=== PATIENT | male | born 1975 | race Caucasian/White ===

== ENCOUNTER 2024-05-19 15:02 | Inpatient (IN) | payer OTHER, SELFPAY ==
[2024-05-19] VITALS (11 sets, daily range): BP systolic 161–227; BP diastolic 92–140; BMI 23.4; BMI 22.1
--- NOTE | 2024-05-19 11:35 | EDRN ---
Seizure pads placed on both siderails at this time for pt safety.
[2024-05-19 11:51] LABS: % Basophils 0.7 % (0-2); % Eosinophils 1.6 % (0-6); % Immature Granulocytes 0.2 % (0-0.5); % Monocytes 10.3 % (1.7-9.3); % Neutrophils 69.2 % (42.2-75.2); Absolute Eosinophils 0.1 10^3/uL (0-0.7); Absolute Monocytes 0.6 10^3/uL (0.1-0.6); Hematocrit 27.6 % (39.0-52.0); Hemoglobin 9.4 g/dL (13.0-18.0); Mean Corp Hgb Conc. 34.1 g/dL (33.0-37.0); Mean Corpuscular Volume 82.1 fL (80.0-94.0); Mean Platelet Volume 9.4 fL (7.4-10.4); Nucleated Red Blood Cells % 0 % (-); Platelet Count 259 10^3/uL (130-400); Red Blood Cell Count 3.36 10^6/uL (4.70-6.10); Red Cell Dist. Width 14.5 % (11.5-14.5); White Blood Cell Count 5.7 10^3/uL (4.8-10.8)
[2024-05-19 12:01] LABS: ALT (SGPT) 34 U/L (0-50); AST (SGOT) 49 U/L (17-59); Albumin 2.6 g/dl (3.5-5.0); Alkaline Phosphatase 137 U/L (38-126); Blood Urea Nitrogen 32 mg/dl (9-20); Calcium 9.3 mg/dl (8.4-10.2); Carbon Dioxide 30 mmol/L (22-30); Chloride 105 mmol/L (98-107); Estimated Creatinine Clearance 62 ml/min; Glucose 153 mg/dl (70-99); Potassium 4.9 mmol/L (3.5-5.1); Sodium 141 mmol/L (135-145); Total Bilirubin 0.2 mg/dl (0.2-1.3); Total Protein 5.1 g/dl (6.3-8.2); eGFR 52.17
[2024-05-19 12:22] LABS: Urine Albumin 3+ (Neg - Trace); Urine Bilirubin Negative (Negative); Urine Character Clear (Clear); Urine Color Yellow; Urine Glucose 3+ (Negative); Urine Ketone Negative (Negative); Urine Leukocyte Negative (Negative); Urine Nitrite Negative (Negative); Urine Occult Blood Trace (Negative); Urine Urobilinogen Negative (Neg - 1+)
--- NOTE | 2024-05-19 12:39 | EDRN ---
Pt incontinent of a large amount of urine w/ diapers changed and bedding w/ good pericare done. Lou Zepeda PA in room w/ pt. BP sitting straight up was 198/98 so still very high.
--- NOTE | 2024-05-19 12:42 | ED.GENMED ---
History of Present Illness
General
Chief Complaint: Seizure
Time Seen by Provider: 05/19/24 11:23
History of Present Illness
History of Present Illness:
48-year-old male with history of prior traumatic brain injury, epilepsy disorder, aphasia, and legal blindness presents to the emergency department from [facility] due to a witnessed seizure. On arrival he is postictal and
somnolent but arouses to voice and follows commands. Family reports that over the past 5 to 6 days he has been increasingly confused, normally is oriented to month and year but has not been able to answer these questions recently. He did see his
neurologist earlier in the week however details of this appointment are vague according to the family. He is maintained on Keppra and lacosamide for seizure control. No reported fevers.
Review of Systems
Review of Systems
Allergies reviewed?: Yes
All Other Systems: ROS reviewed and negative except as documented in HPI and ROS
Phy Exam
Physical Exam
Physical Exam:
GEN: Well appearing, NAD, WDWN
Eyes: PERRLA, EOMs intact, no scleral icterus
HENT: NCAT, oral mucosa moist, no JVD
Lungs: CTAB, no wheezes, rales, rhonchi, normal chest wall excursion
Cardiac: RRR, no M/R/G, no peripheral edema. Radial pulses 2+ bilat
Abdomen: S, NT, ND, NABS, no masses or hepatosplenomegaly
Neuro: Somnolent, arouses to voice and follows commands. Profoundly disoriented to time and place
MSK: No gross deformity or ecchymosis. No edema. No digital clubbing
Skin: No rashes, petechiae. Normal color, no pallor or jaundice.
Psych: Calm, cooperative, proper hygiene
Course
Orders/Labs/Results
Orders:
Orders
05/19/24 11:32
Electrocardiogram (*1) Urgent
Reason for Study: Chest Pain
Cardiac Monitoring- Treatment ONCE
EKG- Treatment ONCE
IV Insert/Care/Rem.- Treatment PRN
05/19/24 11:36
Complete Blood Count/With Diff Urgent
Comprehensive Metabolic Panel Urgent
Keppra (Levetiracetam) [S] Urgent
05/19/24 12:09
Urinalysis Reflex To Culture Urgent
Date Specimen was Collected: 05/19/24
Time Specimen was Collected: 12:07
Urine Microscopic Reflex Cult Urgent
05/19/24 12:40
CT Head W/o Iv Contrast Urgent
Comment:
Reason For Exam: AMS
05/19/24 14:08
HydrALAZINE [Apresoline] 10 mg IV NOW STA
05/19/24 14:49
Admit/Transfer Patient As Directed
Co-Sign Provider:
Level of Care: Inpatient admission
Assign to:: Telemetry
Physician / Group: erika
Diagnosis: seizure
Reason for Telemetry: Arrhythmia
Date to Stop Telemetry: 05/22/24
Time to Stop Telemetry: 11:00
Reason for Hospitalization: seizure
Expected length of stay greater than two midnights?: Yes
ELOS- Estimated Length of Stay in days: 2
I certify the patient meets the requirements for IP care: Yes
PRN Pain Medication Management As Directed
May give lesser potent ordered pain med per pt: Yes
preference::
Protocol:: Medication orders for pain may be administered in a
manner that supports deferring to patient preference
when the pt is:
- Requesting an ordered lesser potent pain medication.
Least to most potent pain medications are defined
as: acetaminophen < NSAID < tramadol < opioids
(morphine, oxycodone, hydromorphone).
- Requesting a lesser dose of the same medication IF
ORDERED.
- Requesting a less intrusive route of administration
if both routes are prescribed by the provider (PO <
IV).
05/19/24 14:50
Code Status As Directed
Resuscitation Status: Full Code
05/19/24 Dinner
Regular
At Your Request: Full Participation
Does patient need a safe tray?: No
05/19/24 15:54
Activity As Directed
Activity Level: As Tolerated
Vital Signs As Directed
Frequency: Per unit guidelines
DX Deep Vein Thrombosis Video Routine
05/19/24 20:00
Heparin 5,000 units SC Q12
05/20/24 06:00
Complete Blood Count/With Diff IN AM
Comprehensive Metabolic Panel IN AM
05/22/24 11:00
DC Protocol for Telemetry ONCE
Abnormal Lab Results
05/19/24 05/19/24
11:36 12:09
RBC 3.36 L 10^6/uL
(4.70-6.10)
Hgb 9.4 L g/dL
(13.0-18.0)
Hct 27.6 L %
(39.0-52.0)
Absolute Lymphs (auto) 1.0 L 10^3/uL
(1.2-3.4)
Lymphocytes % 18.0 L %
(20.5-51.1)
Monocytes % 10.3 H %
(1.7-9.3)
BUN 32 H mg/dl
(9-20)
Creatinine 1.6 H mg/dL
(0.7-1.3)
Glucose 153 H mg/dl
(70-99)
Alkaline Phosphatase 137 H U/L
(38-126)
Total Protein 5.1 L g/dl
(6.3-8.2)
Albumin 2.6 L g/dl
(3.5-5.0)
Ur Occult Blood Reflex Trace A
(Negative)
Urine RBC 3-6 A /HPF
(0-2)
Urine Bacteria (Reflex) Few A
(Negative)
Urine Glucose 3+ A
(Negative)
Urine Albumin (Reflex) 3+ A
(Neg - Trace)
05/19/24 11:36
05/19/24 11:36
Vital Signs
Initial and Last Documented VS:
Initial Vital Signs
Pulse Ox
98
05/19/24 11:21
Last Documented Vital Signs
Temp Pulse Resp BP Pulse Ox
98.7 F 78 16 183/107 95
05/19/24 15:37 05/19/24 15:37 05/19/24 15:37 05/19/24 15:37 05/19/24 15:37
MDM/Problems Addressed
MDM/Problems Addressed:
At this time the cause of the patient's encephalopathy is not clear. According to his family he is able to have a conversation and is oriented fully at baseline, clearly now he feels it is a 1987 and he is perseverating on prior historical events
within his life. He had no further seizure-like activity in the emergency department. CT of the head does not show any acute intracranial pathology. He is certainly anemic however not severely so at baseline is not known as this is his first
visit at [facility]. He remained persistently hypertensive in the emergency department regardless of body position thus we will treat this as a potential hypertensive crisis with encephalopathy. Will admit to the hospitalist service for
further management
*Critical Care Note
Total Time (30-74mins, 75-104mins- exclusive of procedures): Not Applicable
ED Attending Note
-
Portions of this chart may have been created with voice recognition software.� Occasional wrong word or��sound alike� substitutions may have occurred due to the inherent limitations of voice recognition software.
Discharge Plan
Departure
Patient Disposition: Admit
Date of Disposition: 05/19/24
Time of Disposition: 14:27
Presentation/result/management discussed w/ accepting MD/DO: Hospitalist
Discharge Problem:
Hypertensive crisis
Interventions
Interventions:
*Risk Screen - Suicide Last Done: 05/19/24 11:41
*General Assessment Last Done: 05/19/24 11:52
*Neglect/Abuse Screening Last Done: 05/19/24 11:31
ED- Fall Risk Assessment Last Done: 05/19/24 11:52
*ED COVID-19 Vaccine History Last Done: 05/19/24 11:52
*Nursing Disposition Last Done: 05/19/24 15:52
ED- Cardiac Assessment Last Done: 05/19/24 11:55
ED- Neurological Assessment Last Done: 05/19/24 11:55
ED- Pulmonary Assessment Last Done: 05/19/24 11:55
Discharge Date and Time
Discharge Date/Time: 05/19/24 15:52
[2024-05-19 12:43] LABS: Urine Bacteria Few (Negative); Urine Squamous Cell 0-2 /LPF (Few); Urine White Cell 0-2 /HPF (0-5)
[2024-05-19] MEDS: APRESOLINE 10 MG IV (14:35)
--- NOTE | 2024-05-19 14:52 | HPS.HSE ---
Family Physician
-
Family Physician: Felix Quiñonez
Chief Complaint
-
seizure
History of Present Illness
48-year-old male past medical history of prior traumatic brain injury, postconcussive syndrome, epilepsy, legal blindness bilaterally, gastroparesis, diabetes, CKD, labile hypertension, orthostatic hypotension, presenting to the emergency room from
[facility] due to witnessed seizure-like activity. Patient reports that he has a headache and feels confused but denies nausea. He denies any pain elsewhere. He denies any fever, cough, urinary symptoms. No numbness or
tingling.
As per patient's parents patient was at his baseline functional status until 5 days ago when they noticed that he was having tremor and having memory impairment and stuttering a bit. Patient has these symptoms on occasion without a clear triger but
they have been infrequent until 5 days ago. Patient follows with Dr. Yonny Her neurologist at [facility]. His gabapentin was increased 6 months ago.
Patient's blood pressure is normally 120s but he has had orthostatic hypotension his blood pressure drops significantly when standing up.
Patient has been using a walker until a few months ago when he has been mostly bedbound since then.
No smoking, alcohol use or any drug use.
Medical History
Past Medical History
Past Medical History: Reports Other (prior traumatic brain injury, postconcussive syndrome, epilepsy, legal blindness bilaterally, gastroparesis, diabetes, CKD, labile hypertension, orthostatic hypotension,)
Past Surgical History: Reports Other (Cholecystectomy, knee surgery, cataract surgery,)
Social History
Tobacco: Non-smoker
Alcohol: None
Drug: None
Family History
Family History: Not pertinent
Allergies / Home Medications
Allergies reflects when Allergies were last updated in [employer].
Home Medications with original date entered in [employer]
Allergy/Medication List:
Allergies
Allergy/AdvReac Type Severity Reaction Status Date / Time
Sulfa (Sulfonamide Allergy Unknown Verified 05/19/24 11:21
Antibiotics)
Review of Systems
-
History Source: Patient
A 12 point ROS was completed and negative except as noted: Yes
Constitutional: Reports No Symptoms
EENT: Reports No Symptoms
Respiratory: Reports No Symptoms
Cardiac: Reports No Symptoms
Abdomen/GI: Reports No Symptoms
: Reports No Symptoms
Musculoskeletal: Reports No Symptoms
Skin: Reports No Symptoms
Neurological: Reports See HPI
Endocrine: Reports No Symptoms
Hematologic/Lymphatic: Reports No Symptoms
Psych: Reports No Symptoms
Physical Exam
Vital Signs
Vital Signs
Temp Pulse Resp BP Pulse Ox
97.6 F 67 13 217/102 98
05/19/24 11:22 05/19/24 13:15 05/19/24 13:15 05/19/24 13:00 05/19/24 13:15
Physical Exam
General: Well Developed, Well Nourished and No Apparent Distress
HEENT: NormoCephalic, Moist mucous membranes and Atraumatic
Respiratory: Clear
Cardiac: S1/S2 and Regular Rhythm; No Murmur or Rub
GI: Soft, Non Tender, Non Distended and Normal Bowel Sounds; No Organomegaly
Rectal: Deferred by Provider
Musculoskeletal: No Clubbing, No Cyanosis and No Edema
Skin: No Rash
Neuro: Nonfocal/grossly intact
Laboratory Results
-
05/19/24 11:36
05/19/24 11:36
Laboratory Results
Total Bilirubin 0.2 mg/dl (0.2-1.3) 05/19/24 11:36
AST 49 U/L (17-59) 05/19/24 11:36
ALT 34 U/L (0-50) 05/19/24 11:36
Alkaline Phosphatase 137 U/L (38-126) H 05/19/24 11:36
Data Reviewed
-
Lab Data: Labs Reviewed by me
Old Records: Reviewed
Impression/Plan
-
IMPRESSION:
PLAN:
# Seizure
# History of epilepsy
-Patient with currently some postictal symptoms although he is able to answer questions and follow commands
-no neurological deficits
-CT head shows no acute abnormality
-Continue Keppra, lacosamide
-Keppra level pending
-Urinalysis unremarkable
-Neurology consulted
# Hypertensive urgency
-Blood pressure 200
-IV hydralazine
-Continue clonidine patch
-Continue Coreg
-Continue spironolactone
# CKD versus ESTEFANI on CKD
-Creatinine 1.6
-Unknown baseline creatinine
Orthostatic hypotension
-Continue droxidopa, fludrocortisone
History of traumatic brain injury
History of postconcussive syndrome
-Continue gabapentin
Type 2 diabetes
-Continue Lantus 12 units
-Hold metformin
-Insulin sliding scale
Diabetic gastroparesis
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
Chronic anemia
-Hemoglobin 9.4, unknown baseline
-Continue ferrous sulfate
GERD
-Continue omeprazole
-Continue sucralfate
Full code
DVT prophylaxis�heparin
Regular diet
--- NOTE | 2024-05-19 16:39 | PTCARENOTE ---
Received pt from ED via stretcher. PT AAO*4 BP 187/101, provider notified and ordered 10mg labetalol IV. All orders reviewed/ acknowledged and discussed with patient along with plan of care.
[2024-05-19 16:44] LABS: Glucose - Point of Care 136 mg/dl (70-99)
[2024-05-19] MEDS: TRANDATE 10 MG IV (16:46)
[2024-05-19] MEDS: NEURONTIN 1200 MG PO ×2 (16:47→22:33)
[2024-05-19] MEDS: NOVOLOG FLEXPEN-LOW RESISTANCE SC (16:52)
[2024-05-19] MEDS: HEPARIN 5000 UNITS SC (20:03)
[2024-05-19] MEDS: CARAFATE 1 GRAM PO (20:04)
[2024-05-19] MEDS: VIMPAT 200 MG PO (20:04)
[2024-05-19] MEDS: KEPPRA 1500 MG PO (20:04)
[2024-05-19] MEDS: COREG 6.25 MG PO (20:04)
[2024-05-19] MEDS: OSCAL 500 + D 500 MG PO (20:04)
[2024-05-19] MEDS: KCL 20 MEQ PO (20:05)
[2024-05-19 21:56] LABS: Glucose - Point of Care 184 mg/dl (70-99)
[2024-05-19] MEDS: LANTUS 0.12 UNITS SC (22:32)
[2024-05-20 03:33] VITALS: BP 166/90
[2024-05-20 07:09] LABS: % Basophils 0.7 % (0-2); % Eosinophils 2.2 % (0-6); % Immature Granulocytes 0.5 % (0-0.5); % Lymphocytes 18.4 % (20.5-51.1); % Monocytes 7.9 % (1.7-9.3); % Neutrophils 70.3 % (42.2-75.2); Absolute Eosinophils 0.1 10^3/uL (0-0.7); Absolute Lymphocytes 1.1 10^3/uL (1.2-3.4); Absolute Monocytes 0.5 10^3/uL (0.1-0.6); Absolute Neutrophils 4.2 10^3/uL (1.4-6.5); Hematocrit 25.9 % (39.0-52.0); Hemoglobin 8.4 g/dL (13.0-18.0); Mean Corp Hgb Conc. 32.4 g/dL (33.0-37.0); Mean Corpuscular Volume 80.2 fL (80.0-94.0); Mean Platelet Volume 9.3 fL (7.4-10.4); Nucleated Red Blood Cells % 0 % (-); Platelet Count 268 10^3/uL (130-400); Red Blood Cell Count 3.23 10^6/uL (4.70-6.10); Red Cell Dist. Width 14.3 % (11.5-14.5); White Blood Cell Count 5.9 10^3/uL (4.8-10.8)
[2024-05-20 07:31] LABS: ALT (SGPT) 31 U/L (0-50); AST (SGOT) 34 U/L (17-59); Albumin 2.4 g/dl (3.5-5.0); Alkaline Phosphatase 136 U/L (38-126); Blood Urea Nitrogen 31 mg/dl (9-20); Calcium 9.1 mg/dl (8.4-10.2); Carbon Dioxide 26 mmol/L (22-30); Chloride 108 mmol/L (98-107); Estimated Creatinine Clearance 59 ml/min; Glucose 165 mg/dl (70-99); Potassium 4.2 mmol/L (3.5-5.1); Sodium 145 mmol/L (135-145); Total Bilirubin 0.2 mg/dl (0.2-1.3); Total Protein 4.8 g/dl (6.3-8.2); eGFR 52.17
[2024-05-20 07:38] VITALS: BP 188/102
[2024-05-20 08:12] LABS: Glucose - Point of Care 166 mg/dl (70-99)
[2024-05-20] MEDS: HEPARIN 5000 UNITS SC ×2 (08:14→20:02)
[2024-05-20] MEDS: CYMBALTA DELAYED RELEASE 120 MG PO (08:16)
[2024-05-20] MEDS: FARXIGA 10 MG PO (08:17)
[2024-05-20] MEDS: NEURONTIN 1200 MG PO ×3 (08:17→21:48)
[2024-05-20] MEDS: VIMPAT 200 MG PO ×2 (08:17→20:02)
[2024-05-20] MEDS: OSCAL 500 + D 500 MG PO ×2 (08:19→20:01)
[2024-05-20] MEDS: FEOSOL 325 MG PO (08:19)
[2024-05-20] MEDS: ALDACTONE 25 MG PO (08:19)
[2024-05-20] MEDS: CARAFATE 1 GRAM PO ×2 (08:19→20:01)
[2024-05-20] MEDS: PROTONIX 40 MG PO (08:19)
[2024-05-20] MEDS: COREG 6.25 MG PO ×2 (08:19→12:36)
[2024-05-20] MEDS: LOW STRENGTH ASPIRIN 81 MG PO (08:20)
[2024-05-20] MEDS: CRESTOR 20 MG PO (08:20)
[2024-05-20] MEDS: KEPPRA 1500 MG PO ×2 (08:20→20:01)
[2024-05-20] MEDS: FLORINEF 0.2 MG PO (08:20)
[2024-05-20] MEDS: KCL 20 MEQ PO ×2 (08:20→19:55)
[2024-05-20] MEDS: NOVOLOG FLEXPEN-LOW RESISTANCE SC (08:22)
[2024-05-20 08:35] LABS: Glycohemoglobin (HgbA1c) 6.5 % (4.0-5.6)
--- NOTE | 2024-05-20 09:10 | CON.NEURO4 ---
Consultation - Neurology 4
-
CONSULTING PHYSICIAN: Davon Lind MD
REFERRING PHYSICIAN: Hospitalists/Dr. Hidalgo
DICTATED BY: KARL Law
DATE/TIME OF REQUEST: 05/19/24
DATE/TIME OF CONSULTATION: 05/20/24
Reason for Consultation: Concern for seizure
History of Present Illness:
This is a 48-year-old right-handed male who has presented to the hospital from [facility] on 05/19/24 with report of a witnessed seizure. Patient offers no insight to recent events. Per patient's family, he is typically oriented x3 at
baseline. Over the past 5-6 days they have noted that he has been increasingly confused, tremulous, reporting a headache, and speech has been mildly stuttered. He is followed by Neurology Dr. Yonny Her at [facility] for history of TBI, seizure
disorder, orthostatic hypotension and was reportedly seen at the beginning of last week but was at his baseline. He is taking Keppra 1500mg BID and Vimpat 200mg BID, no known recent changes have been made to these and he has not missed any doses per
his DC. Patient's blood pressure is typically normal, then significantly drops with standing. Blood pressure on arrival here was 220/116, this morning it is still 188/102. At baseline, he was ambulating with rolling walker up until a few months ago
but then started requiring a wheelchair for ambulation. Currently he reports having a right-sided sharp headache. He reports this has been happening intermittently. He reports bilateral blindness starting two years ago due to diabetic retinopathy.
He denies any dizziness, speech/swallow difficulty, tongue biting, bowel/bladder incontinence, numbness, focal weakness, chest pain, palpitations, and shortness of breath.
Past Medical History: TBI, seizure disorder, orthostatic hypotension, legally blind, NIDDM requiring insulin, GERD, depression, gait dysfunction
Surgical History: Cholecystectomy, knee surgery, b/l cataract removal.
Family History: Reviewed and noncontributory.
Social History: Denies tobacco, alcohol, and illicit drug use.
Allergies: Sulfa.
Home Medications: See below.
Review of Symptoms:
Patient denies any fever, chest pain, shortness of breath, GI or symptoms.
�Per the HPI.�All systems are reviewed negative except above.
Physical Exam:
The patient is afebrile, abdomen is nondistended, breathing is unlabored, skin is warm and dry, no edema.
Neurologic Examination:
The patient is drowsy. Opens eyes to voice. He is oriented to self only. He is able to follow some commands and answer questions appropriately but motor and verbal responses are slow. Speech is hypophonic. There is no aphasia or dysarthria. On
cranial nerve assessment, pupils are 3 mm bilateral, round and reactive to light and accommodation. Visual sandy are absent bilaterally. Negative Dolls eyes. Facial sensations are intact and bilaterally symmetrical, there is no facial asymmetry.
Hearing is intact bilaterally to normal conversation volume. Tongue palate and uvula are midline. Sternocleidomastoid strengths are full bilaterally. Motor strengths are 5/5 bilateral upper and 4/5 bilateral lower extremities on medical research
[employer] [place] scale. There is drift in BLE. Possible slight intermittent myoclonus in the RUE. Deep tendon reflexes are absent bilateral upper and lower extremities and Babinski is absent bilaterally. There was no extinction noted on double simultaneous
stimulation. Coordination is intact by finger to nose bilaterally.
Lab Results: See below.
Neuro Imaging:
1. CT Head 05/19/24: No acute intracranial abnormality noted.
Differentials for the patient's presentation include:
1. Change in mental status likely due to hypertensive encephalopathy in the setting of malignant hypertension and history of TBI.
2. Low concern for breakthrough seizure but possible.
Patient has the following risk factors for their symptoms: TBI, meds for orthostasis, hypertension
Recommendations:
-Continue Keppra 1500mg BID and Vimpat 200mg BID for seizure prevention,
-Goal normotension.
-Do not see a role for further neurological imaging at this point. If patient fails to improve with normalization of bp, will reconsider at that point.
-DVT prophylaxis.
-Follow-up with outpatient Neurologist.
-Will follow as-needed. Please contact our Neurology service with any questions/concerns.
Discussed patient care with: Dr. Lind, the patient
Vital Signs and Labs
-
Vital Signs and Labs:
Vital Signs
Temp Pulse Resp BP Pulse Ox
98.2 F 74 18 188/102 95
05/20/24 07:38 05/20/24 07:38 05/20/24 07:38 05/20/24 07:38 05/20/24 07:38
Lab Results
05/20/24 06:31
05/20/24 06:31
Sodium 145 mmol/L (135-145) 05/20/24 06:31
Potassium 4.2 mmol/L (3.5-5.1) 05/20/24 06:31
BUN 31 mg/dl (9-20) H 05/20/24 06:31
Glucose 165 mg/dl (70-99) H 05/20/24 06:31
Calcium 9.1 mg/dl (8.4-10.2) 05/20/24 06:31
Medications
-
Active Medications
Generic Name Dose Route Start Last Admin
Trade Name Freq PRN Reason Stop Dose Admin
Acetaminophen 650 mg 05/19/24 15:55 05/20/24 10:14
Acetaminophen 325 Mg Tablet PO 06/16/24 15:54 650 mg
Q8HPRN PRN Administration
mild pain
Aspirin 81 mg 05/20/24 08:00 05/20/24 08:20
Aspirin 81 Mg Chewable Tablet PO 06/17/24 07:59 81 mg
DAILY MILLER Administration
Bisacodyl 10 mg 05/19/24 15:55
Bisacodyl 10 Mg Rectal Suppository RECTAL 06/16/24 15:54
[id number] PRN
if no bm on 3rd day
Calcium/Vitamin D 500 mg 05/19/24 20:00 09/09/24 08:19
Calcium Carbonate 500 Mg/Vitamin D 5 Mcg (200 Units) Tablet PO 06/16/24 19:59 500 mg
BID MILLER Administration
Carvedilol 6.25 mg 05/19/24 20:00 05/20/24 08:19
Carvedilol 6.25 Mg Tablet PO 06/16/24 19:59 6.25 mg
BID MILLER Administration
Clonidine HCl 0.2 mg 05/25/24 08:00
Clonidine 0.2 Mg Patch TRANSDERM 06/22/24 07:59
SA@0800 MILLER
Clonidine HCl 0.1 mg 05/19/24 15:55
Clonidine 0.1 Mg Tablet PO 06/16/24 15:54
Q8HPRN PRN
sbp>170
Dapagliflozin 10 mg 05/20/24 08:00 05/20/24 08:17
Dapagliflozin (Farxiga) 10 Mg Tablet PO 06/17/24 07:59 10 mg
DAILY MILLER Administration
Dextrose 12.5 grams 05/19/24 15:56
Dextrose 50% (0.5 Grams/Ml) 50 Ml Syringe IV 06/16/24 15:55
[id number] PRN
hypoglycemia
Protocol
Droxidopa 100 mg 05/19/24 22:00
Droxidopa 100 Mg Capsule (Non-Form) PO 06/16/24 21:59
TID MILLER
Duloxetine HCl 120 mg 05/20/24 08:00 05/20/24 08:16
Duloxetine Delayed Release 60 Mg Capsule PO 06/17/24 07:59 120 mg
DAILY MILLER Administration
Ferrous Sulfate 325 mg 05/20/24 08:00 05/20/24 08:19
Ferrous Sulfate 325 Mg Tablet PO 06/17/24 07:59 325 mg
DAILY MILLER Administration
Fludrocortisone Acetate 0.2 mg 05/20/24 08:00 05/20/24 08:20
Fludrocortisone Acetate 0.1 Mg Tablet PO 06/17/24 07:59 0.2 mg
DAILY MILLER Administration
Gabapentin 1,200 mg 05/19/24 17:00 05/20/24 08:17
Gabapentin 400 Mg Capsule PO 06/16/24 16:59 1,200 mg
TID MILLER Administration
Glucagon 1 mg 05/19/24 15:56
Glucagon 1 Mg Vial IM 06/16/24 15:55
PRN PRN
hypoglycemia
Protocol
Heparin Sodium 5,000 units 05/19/24 20:00 05/20/24 08:14
Heparin 5,000 Units/Ml 1 Ml Vial SC 06/16/24 19:59 5,000 units
Q12 MILLER Administration
Hydralazine HCl 5 mg 05/19/24 21:23
Hydralazine 20 Mg/Ml Vial IV 06/16/24 21:22
Q6HPRN PRN
SBP>170
Insulin Glargine 12 units/ 0.12 mls @ 0 mls/hr 05/19/24 22:00 05/19/24 22:32
Device SC 06/16/24 21:59 0.12 mls
HS MILLER Administration
As Directed
Insulin Aspart 0 units 05/19/24 16:30 05/20/24 08:22
Insulin Aspart Low Resistance 300 Units/3 Ml Pen.Injctr SC 06/16/24 16:29 Not Given
AC MILLER
Protocol
Lacosamide 200 mg 05/19/24 20:00 05/20/24 08:17
Lacosamide (Vimpat) 200 Mg Tablet PO 06/16/24 19:59 200 mg
BID MILLER Administration
Levetiracetam 1,500 mg 05/19/24 20:00 05/20/24 08:20
Levetiracetam 500 Mg Regular Release Tablet PO 06/16/24 19:59 1,500 mg
BID MILLER Administration
Loperamide HCl 4 mg 05/19/24 16:05
Loperamide 2 Mg Capsule PO 06/16/24 16:04
Q6HPRN PRN
diarrhea
(Cetylpyridinium 1 karly 05/19/24 15:55
Chloride Lozenge) BUCCAL
Q4HPRN PRN
cough
Ondansetron HCl 4 mg 05/19/24 15:55
Ondansetron 4 Mg Tablet PO 06/16/24 15:54
Q6HPRN PRN
nasuea
Pantoprazole Sodium 40 mg 05/20/24 08:00 05/20/24 08:19
Pantoprazole 40 Mg Delayed Release Tablet PO 06/17/24 07:59 40 mg
DAILY MILLER Administration
Polyethylene Glycol 17 grams 05/19/24 15:55
Polyethylene Glycol Powder 17 Grams Packet PO 06/16/24 15:54
DAILYPRN PRN
constipation
Potassium Chloride 20 meq 05/19/24 20:00 05/20/24 08:20
Potassium Chloride 20 Meq Extended Release Tablet PO 06/16/24 19:59 20 meq
BID MILLER Administration
Rosuvastatin Calcium 20 mg 05/20/24 08:00 05/20/24 08:20
Rosuvastatin (Crestor) 20 Mg Tablet PO 06/17/24 07:59 20 mg
DAILY MILLER Administration
Sodium Chloride 0 flush 05/19/24 17:00
Sodium Chloride 0.9% (Flush) Syringe IV 06/16/24 16:59
PER PROTOCOL MILLER
Spironolactone 25 mg 05/20/24 08:00 05/20/24 08:19
Spironolactone 25 Mg Tablet PO 06/17/24 07:59 25 mg
DAILY MILLER Administration
Sucralfate 1 gram 05/19/24 20:00 05/20/24 08:19
Sucralfate 1 Gram Tablet PO 06/16/24 19:59 1 gram
BID MILLER Administration
Home Medications
�Medication �Instructions �Recorded
acetaminophen 325 mg tablet 650 mg PO Q8HPRN PRN mild pain 05/19/24
(Tylenol)
aspirin 81 mg chewable tablet 81 mg PO DAILY 05/19/24
bisacodyl 10 mg rectal suppository 10 mg HI [id number] PRN if no bm on 05/19/24
(Dulcolax (bisacodyl)) 3rd day
calcium carbonate 600 mg-vitamin 1 tab PO BID 05/19/24
D3 10 mcg (400 unit) tablet
(Calcium 600 + D(3))
carvedilol 6.25 mg tablet (Coreg) 6.25 mg PO BID 05/19/24
cetylpyridinium chloride 1 karly mucous membrane Q4HPRN PRN 05/19/24
cough
clonidine 0.2 mg/24 hr weekly 1 patch transdermal SA 05/19/24
transdermal patch
clonidine HCl 0.1 mg tablet 0.1 mg PO Q8HPRN PRN sbp>170 05/19/24
droxidopa 100 mg capsule 100 mg PO TID 05/19/24
duloxetine 60 mg capsule,delayed 120 mg PO DAILY 05/19/24
release (Cymbalta)
empagliflozin 10 mg tablet 10 mg PO DAILY 05/19/24
(Jardiance)
ferrous gluconate 270 mg (27 mg 270 mg PO DAILY 05/19/24
iron) tablet
fludrocortisone 0.1 mg tablet 0.2 mg PO DAILY 05/19/24
gabapentin 600 mg tablet 1,200 mg PO TID 05/19/24
insulin aspart U-100 100 unit/mL 12 unit SC BID@0800,1700 05/19/24
subcutaneous cartridge (Novolog
PenFill U-100 Insulin aspart)
insulin aspart U-100 100 unit/mL 10 unit SC DAILY@1200 05/19/24
subcutaneous solution (Novolog
U-100 Insulin aspart)
insulin glargine 100 unit/mL (3 12 unit SC HS 05/19/24
mL) subcutaneous pen (Lantus
Solostar U-100 Insulin)
lacosamide 200 mg tablet (Vimpat) 200 mg PO BID 05/19/24
levetiracetam 500 mg tablet 1,500 mg PO BID 05/19/24
(Keppra)
loperamide 2 mg tablet 4 mg PO Q6HPRN PRN diarrhea 05/19/24
metformin 500 mg tablet 500 mg PO BID 05/19/24
omeprazole 40 mg capsule,delayed 40 mg PO DAILY 05/19/24
release
ondansetron HCl 4 mg tablet 4 mg PO Q6HPRN PRN nasuea 05/19/24
polyethylene glycol 3350 17 gram 17 g PO DAILYPRN PRN constipation 05/19/24
oral powder packet (Miralax)
potassium chloride 20 mEq 20 meq PO BID 05/19/24
tablet,extended release
rosuvastatin 20 mg tablet 20 mg PO DAILY 05/19/24
spironolactone 25 mg tablet 25 mg PO DAILY 05/19/24
sucralfate 1 gram tablet (Carafate) 1 g PO BID 05/19/24
[2024-05-20] MEDS: TYLENOL 650 MG PO ×2 (10:14→21:53)
[2024-05-20 11:28] LABS: Glucose - Point of Care 234 mg/dl (70-99)
[2024-05-20] MEDS: NOVOLOG FLEXPEN-LOW RESISTANCE 2 UNITS SC ×2 (11:29→18:09)
[2024-05-20 11:43] VITALS: BP 184/98
--- NOTE | 2024-05-20 11:53 | W.PN.HOSP.TC ---
Today's Communication/Plan
-
increase Coreg, consider further adjustments as able
Assessment / Plan
Assessment / Plan
Assessment:
Seizure like activity
History of epilepsy
- Neurology evaluated; felt like his symptoms were related to hypertensive encephalopathy
- no current neurological deficits, CT head negative
- continue Keppra, lacosamide
Hypertensive urgency
- continue Clonidine 0.2mg patch
- increase Coreg; assess response
- continue Spironolactone
- consider addition of calcium channel angel
- followed by Dr. Son - [facility]
suspected CKD, stage 2
- unknown baseline
Orthostatic hypotension
- continue droxidopa, fludrocortisone
History of traumatic brain injury
History of postconcussive syndrome
- continue gabapentin
Type 2 diabetes
- A1c is 6.5%
- continue Lantus 12 units
- hold metformin
- insulin sliding scale
Diabetic gastroparesis
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
Chronic anemia
- hemoglobin 9.4, unknown baseline
- continue ferrous sulfate
GERD
- continue omeprazole
- continue sucralfate
DVT ppx: Heparin
Code: Full
Anticipated Discharge: 24 - 48 hours
Subjective/Interval History
-
Date of Service: May 20, 2024
no overnight events
BP elevated
Objective Data
-
Labs:
Laboratory Results
05/20/24
06:31
WBC 5.9
Hgb 8.4 L
Hct 25.9 L
Plt Count 268
Sodium 145
Potassium 4.2
Chloride 108 H
Carbon Dioxide 26
BUN 31 H
Creatinine 1.6 H
Glucose 165 H
Calcium 9.1
Total Bilirubin 0.2
AST 34
ALT 31
Alkaline Phosphatase 136 H
Vital Signs:
Vital Signs
Temp Pulse Resp BP Pulse Ox
98.2 F 74 18 188/102 95
05/20/24 07:38 05/20/24 07:38 05/20/24 07:38 05/20/24 07:38 05/20/24 07:38
I&O
05/19/24 05/20/24 05/21/24
06:59 06:59 06:59
Intake Total 1000 / 1000
Output Total 925 / 925
Balance 75 / 75
Physical Exam
-
General: No Apparent Distress
HEENT: Normocephalic
Respiratory: Negative Wheezes
Cardiac: Regular Rhythm
GI: Soft
Neuro: AO x 3
Data Reviewed
-
Total Time Spent with Patient (in minutes): 41
Labs: Labs Reviewed by me
[2024-05-20 12:16] LABS: Glucose - Point of Care 211 mg/dl (70-99)
[2024-05-20 15:20] VITALS: BP 196/100
--- NOTE | 2024-05-20 16:28 | CM ---
account manager b2b reviewed patient's chart and met with patient and patient was admitted from [facility], patient with a history of TBI, and seizure disorder, per [facility] a few weeks ago patient was able to use walker since then
patient has been bedbound. Call placement to admissions at [facility] to obtain patient's prior level of functioning and to check to see if they need Auth for patient to return to [facility].
PCP: Dr. Quiñonez
Plan; Patient to return to [facility] when stable.
[2024-05-20] MEDS: APRESOLINE 5 MG IV (16:34)
[2024-05-20 17:28] LABS: Glucose - Point of Care 226 mg/dl (70-99)
[2024-05-20 19:30] VITALS: BP 157/96
[2024-05-20] MEDS: COREG 12.5 MG PO (20:02)
[2024-05-20 21:16] LABS: Glucose - Point of Care 225 mg/dl (70-99)
[2024-05-20 21:42] LABS: Keppra (Levetiracetam) 91 ug/mL (10-40)
[2024-05-20] MEDS: LANTUS 0.12 UNITS SC (21:47)
[2024-05-20 23:41] VITALS: BP 175/97
[2024-05-21] VITALS (8 sets, daily range): BP systolic 117–203; BP diastolic 73–109; PULSE 74–80; O2SAT 97
[2024-05-21] MEDS: APRESOLINE 5 MG IV ×3 (00:47→21:53)
[2024-05-21 07:15] LABS: Glucose - Point of Care 172 mg/dl (70-99)
[2024-05-21] MEDS: NOVOLOG FLEXPEN-LOW RESISTANCE 1 UNITS SC (07:45)
[2024-05-21] MEDS: FARXIGA 10 MG PO (07:46)
[2024-05-21] MEDS: HEPARIN 5000 UNITS SC ×2 (07:47→20:07)
[2024-05-21] MEDS: CYMBALTA DELAYED RELEASE 120 MG PO (07:47)
[2024-05-21] MEDS: NEURONTIN 1200 MG PO ×3 (07:47→21:36)
[2024-05-21] MEDS: CRESTOR 20 MG PO (07:48)
[2024-05-21] MEDS: ALDACTONE 25 MG PO (07:48)
[2024-05-21] MEDS: VIMPAT 200 MG PO ×2 (07:48→20:06)
[2024-05-21] MEDS: PROTONIX 40 MG PO (07:48)
[2024-05-21] MEDS: COREG 12.5 MG PO ×2 (07:49→20:06)
[2024-05-21] MEDS: KCL 20 MEQ PO ×2 (07:49→20:07)
[2024-05-21] MEDS: CARAFATE 1 GRAM PO ×2 (07:49→20:07)
[2024-05-21] MEDS: OSCAL 500 + D 500 MG PO ×2 (07:49→20:06)
[2024-05-21] MEDS: LOW STRENGTH ASPIRIN 81 MG PO (07:49)
[2024-05-21] MEDS: KEPPRA 1500 MG PO ×2 (07:49→20:06)
[2024-05-21] MEDS: FEOSOL 325 MG PO (07:50)
[2024-05-21 07:58] LABS: Hematocrit 25.4 % (39.0-52.0); Hemoglobin 8.4 g/dL (13.0-18.0); Mean Corp Hgb Conc. 33.1 g/dL (33.0-37.0); Mean Corpuscular Hgb 26.2 pg (27.0-31.0); Mean Corpuscular Volume 79.1 fL (80.0-94.0); Mean Platelet Volume 8.9 fL (7.4-10.4); Platelet Count 262 10^3/uL (130-400); Red Blood Cell Count 3.21 10^6/uL (4.70-6.10); Red Cell Dist. Width 14.4 % (11.5-14.5); White Blood Cell Count 5.9 10^3/uL (4.8-10.8)
[2024-05-21 08:37] LABS: Blood Urea Nitrogen 31 mg/dl (9-20); Calcium 9.3 mg/dl (8.4-10.2); Carbon Dioxide 26 mmol/L (22-30); Chloride 104 mmol/L (98-107); Estimated Creatinine Clearance 59 ml/min; Glucose 160 mg/dl (70-99); Potassium 4.1 mmol/L (3.5-5.1); Sodium 139 mmol/L (135-145); eGFR 52.17
--- NOTE | 2024-05-21 09:54 | W.PN.HOSP.TC ---
Today's Communication/Plan
-
monitor BP trends on currenlt oral regimen, repeat BP 1 pm.
holding droxidopa, fludrocortisone currently
Assessment / Plan
Assessment / Plan
Assessment:
Seizure like activity
History of epilepsy
- Neurology evaluated; felt like his symptoms were related to hypertensive encephalopathy
- no current neurological deficits, CT head negative
- continue Keppra, lacosamide
Hypertensive urgency
- continue Clonidine 0.2mg patch
- continue Coreg 12.5mg BID
- continue Spironolactone
- consider addition of calcium channel angel
- reducing fludrocortisone/Droxidopa
- followed by Dr. Son - [facility]
suspected CKD, stage 2
- unknown baseline
Orthostatic hypotension
- off droxidopa, fludrocortisone currently
History of traumatic brain injury
History of postconcussive syndrome
- continue gabapentin
Type 2 diabetes
- A1c is 6.5%
- continue Lantus 12 units
- hold metformin
- insulin sliding scale
Diabetic gastroparesis
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
Chronic anemia
- hemoglobin 9.4, unknown baseline
- continue ferrous sulfate
GERD
- continue omeprazole
- continue sucralfate
DVT ppx: Heparin
Code: Full
Anticipated Discharge: Within 24 hours
Subjective/Interval History
-
Date of Service: May 21, 2024
no further seizure like events with control of BP
Objective Data
-
Labs:
Laboratory Results
05/21/24
07:25
WBC 5.9
Hgb 8.4 L
Hct 25.4 L
Plt Count 262
Sodium 139
Potassium 4.1
Chloride 104
Carbon Dioxide 26
BUN 31 H
Creatinine 1.6 H
Glucose 160 H
Calcium 9.3
Vital Signs:
Vital Signs
Temp Pulse Resp BP Pulse Ox
98 F 72 14 174/90 96
05/21/24 07:40 05/21/24 07:40 05/21/24 07:40 05/21/24 07:40 05/21/24 07:40
I&O
05/20/24 05/21/24 05/22/24
06:59 06:59 06:59
Intake Total 1000 / 1000 780 / 780
Output Total 925 / 925 1550 / 1550
Balance 75 / 75 -770 / -770
Physical Exam
-
General: No Apparent Distress
HEENT: Normocephalic
Respiratory: Negative Wheezes
Cardiac: Regular Rhythm
GI: Soft
Genito-urinary: No Costovertebral Tender
Musculoskeletal: No Edema
Neuro: AO x 3
Hematologic / Lymphatic: No Lymphadenopathy
Psych: Calm
Data Reviewed
-
Total Time Spent with Patient (in minutes): 42
Labs: Labs Reviewed by me
--- NOTE | 2024-05-21 11:19 | CM ---
Addendum entered by Yudy Goncalves 05/21/24 15:54:
Per physician patient is for possible discharge tomorrow, plan is for patient to return to [facility], no Auth required per admissions at [facility] as patient is a LTC resident.
[facility]
Report [phone]

Original Note:
Chart reviewed and per physician patient is for possible discharge tomorrow, case finishing machine adjuster spoke with admissions at [facility] and she will confirm activity level, patient will need PT/OT in order to obtain an Auth. Physician is aware.
Plan; Patient to return to [facility], will need Auth.
[2024-05-21 11:32] LABS: Glucose - Point of Care 204 mg/dl (70-99)
[2024-05-21] MEDS: NOVOLOG FLEXPEN-LOW RESISTANCE 2 UNITS SC (11:57)
--- NOTE | 2024-05-21 14:53 | PTCARENOTE ---
Notified Doctor of the pt;s noon BP being 178/91. He stated continue to monitor the BP. He stated that the BP was expected.
[2024-05-21 16:08] LABS: Glucose - Point of Care 259 mg/dl (70-99)
[2024-05-21] MEDS: NOVOLOG FLEXPEN-LOW RESISTANCE 3 UNITS SC (16:10)
[2024-05-21 21:32] LABS: Glucose - Point of Care 316 mg/dl (70-99)
[2024-05-21] MEDS: LANTUS 0.12 UNITS SC (21:37)
[2024-05-21] MEDS: NOVOLOG FLEXPEN 4 UNITS SC (21:51)
[2024-05-22] VITALS (10 sets, daily range): BP systolic 95–189; BP diastolic 61–100
[2024-05-22] MEDS: CATAPRES 0.1 MG PO ×2 (00:13→03:41)
--- NOTE | 2024-05-22 03:03 | PTCARENOTE ---
See chart for patient`s blood pressure. Blood pressures treated with prn blood pressure medications. At 0200, manual BP taken. Manual BP was 178/82 HR 68. SALVADOR Freeman made aware, RN told to reassess BP in 1-2 hours. At 0300, BP was 188/99. GENETIC COUNSELLOR made
aware.
[2024-05-22 08:11] LABS: Glucose - Point of Care 232 mg/dl (70-99)
[2024-05-22 08:32] LABS: Hematocrit 26.3 % (39.0-52.0); Hemoglobin 8.9 g/dL (13.0-18.0); Mean Corp Hgb Conc. 33.8 g/dL (33.0-37.0); Mean Corpuscular Hgb 27.1 pg (27.0-31.0); Mean Corpuscular Volume 80.2 fL (80.0-94.0); Platelet Count 261 10^3/uL (130-400); Red Blood Cell Count 3.28 10^6/uL (4.70-6.10); Red Cell Dist. Width 14.1 % (11.5-14.5); White Blood Cell Count 5.7 10^3/uL (4.8-10.8)
[2024-05-22 08:50] LABS: Blood Urea Nitrogen 26 mg/dl (9-20); Calcium 9.2 mg/dl (8.4-10.2); Carbon Dioxide 31 mmol/L (22-30); Chloride 104 mmol/L (98-107); Estimated Creatinine Clearance 68 ml/min; Glucose 218 mg/dl (70-99); Potassium 4.1 mmol/L (3.5-5.1); Sodium 139 mmol/L (135-145); eGFR > 60.00
[2024-05-22] MEDS: KEPPRA 1500 MG PO ×2 (08:51→19:51)
[2024-05-22] MEDS: NOVOLOG FLEXPEN-LOW RESISTANCE 2 UNITS SC (08:51)
[2024-05-22] MEDS: FARXIGA 10 MG PO (08:52)
[2024-05-22] MEDS: ALDACTONE 25 MG PO (08:52)
[2024-05-22] MEDS: KCL 20 MEQ PO ×2 (08:52→19:51)
[2024-05-22] MEDS: CARAFATE 1 GRAM PO ×2 (08:52→19:51)
[2024-05-22] MEDS: COREG 12.5 MG PO ×2 (08:53→19:51)
[2024-05-22] MEDS: CRESTOR 20 MG PO (08:53)
[2024-05-22] MEDS: FEOSOL 325 MG PO (08:53)
[2024-05-22] MEDS: HEPARIN 5000 UNITS SC ×2 (08:53→19:51)
[2024-05-22] MEDS: PROTONIX 40 MG PO (08:53)
[2024-05-22] MEDS: CYMBALTA DELAYED RELEASE 120 MG PO (08:53)
[2024-05-22] MEDS: ZOFRAN 4 MG PO (08:53)
[2024-05-22] MEDS: LOW STRENGTH ASPIRIN 81 MG PO (08:53)
[2024-05-22] MEDS: NEURONTIN 1200 MG PO ×3 (08:53→21:16)
[2024-05-22] MEDS: OSCAL 500 + D 500 MG PO ×2 (08:53→19:51)
[2024-05-22] MEDS: VIMPAT 200 MG PO ×2 (08:53→19:51)
[2024-05-22] MEDS: GLUCOPHAGE 500 MG PO ×2 (08:56→19:51)
[2024-05-22] MEDS: NOVOLOG FLEXPEN 12 UNITS SC ×2 (08:58→17:42)
--- NOTE | 2024-05-22 10:32 | W.PN.HOSP.TC ---
Today's Communication/Plan
-
add Nifedipine
monitor BP response
Assessment / Plan
Assessment / Plan
Assessment:
Seizure like activity
History of epilepsy
- Neurology evaluated; felt like his symptoms were related to hypertensive encephalopathy
- no current neurological deficits, CT head negative
- continue Keppra, lacosamide
Hypertensive urgency
- continue Clonidine 0.2mg patch
- continue Coreg 12.5mg BID
- continue Spironolactone
- add Nifedipine 30mg daily
- holding fludrocortisone/Droxidopa
- followed by Dr. Son [facility]
suspected CKD, stage 2
- unknown baseline
Orthostatic hypotension
- off droxidopa, fludrocortisone currently
History of traumatic brain injury
History of postconcussive syndrome
- continue gabapentin
Type 2 diabetes
- A1c is 6.5%
- continue Lantus 12 units
- hold metformin
- insulin sliding scale
Diabetic gastroparesis
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
Chronic anemia
- hemoglobin 9.4, unknown baseline
- continue ferrous sulfate
GERD
- continue omeprazole
- continue sucralfate
DVT ppx: Heparin
Code: Full
Anticipated Discharge: Within 24 hours
Subjective/Interval History
-
Date of Service: May 22, 2024
no acute complaints
Objective Data
-
Labs:
Laboratory Results
05/22/24
08:14
WBC 5.7
Hgb 8.9 L
Hct 26.3 L
Plt Count 261
Sodium 139
Potassium 4.1
Chloride 104
Carbon Dioxide 31 H
BUN 26 H
Creatinine 1.4 H
Glucose 218 H
Calcium 9.2
Vital Signs:
Vital Signs
Temp Pulse Resp BP Pulse Ox
97.4 F 67 20 183/100 97
05/22/24 07:34 05/22/24 08:53 05/22/24 07:34 05/22/24 08:53 05/22/24 07:34
I&O
05/21/24 05/22/24 05/23/24
06:59 06:59 06:59
Intake Total 780 / 780 1560 / 1560
Output Total 1550 / 1550
Balance -770 / -770 1560 / 1560
Physical Exam
-
General: No Apparent Distress
HEENT: Normocephalic and Atraumatic
Respiratory: Negative Wheezes
Cardiac: Regular Rhythm and S1/S2
GI: Soft
Neuro: AO x 3
Hematologic / Lymphatic: No Lymphadenopathy
Psych: Calm
Data Reviewed
-
Total Time Spent with Patient (in minutes): 41
Labs: Labs Reviewed by me
--- NOTE | 2024-05-22 11:03 | PN.CDI ---
CDI
- -
CDI:
Physician Documentation Request
Admit Date: 05/19/24 15:02
Dear Doctor Machelle,
Patient presented after seizure like activity to ED. Patient was noted to be 'postictal and somnolent but arouses to voice and follows commands. Family reports that over the past 5 to 6 days he has been increasingly confused, normally is oriented to
month and year but has not been able to answer these questions recently'
Neuro consult states 'low concern for breakthrough seizure ...'
Hospitalist progress notes states 'Seizure like activity, history of epilepsy. Neurology evaluated; felt like his symptoms were related to hypertensive encephalopathy...Hypertensive urgency'
Please clarify which is a more accurate diagnosis reflecting the type and acuity of the documented hypertension:
Hypertensive Urgency Only- B/P is severely elevated (systolic > or = to 180 or diastolic > or = to 110) but there is no associated organ damage. Symptoms may include: headache, shortness of breath, nosebleeds, severe anxiety. Treatment usually
consists of addition to or adjusting of oral medications and does not generally necessitate hospitalization.
Hypertensive Emergency - B/P is severely elevated (systolic > or = to 180 or diastolic > or = to 110) but can occur at lower levels especially in patients who did not previously have high B/P. There is usually associated organ damage. Symptoms may
include: memory loss, LOC, CVA, [place], angina, renal failure, pulmonary edema. Generally requires more aggressive treatment and a hospitalization.
Hypertensive Crisis - an acute elevation in B/P that can lead to organ damage. Broad term that is further differentiated to include urgency or emergency based on presence of organ damage.
Other (please specify)
Use of terms such as suspected, likely, concern for, or probable (associated with a specific diagnosis that is being evaluated, monitored, or treated as if it exists) are acceptable and can be coded in the inpatient setting, when documented at the
time of discharge.
Thank you,
Shanique Jean RN, BSN
CDI Specialist
tiger text
Please use your independent medical judgment in providing your response.
--- NOTE | 2024-05-22 11:18 | PN.CDI ---
CDI
- -
CDI:
Physician Documentation Request
Admit Date: 05/19/24 15:02
Dear Doctor Machelle,
Patient presented after seizure like activity to ED. Patient was noted to be 'postictal and somnolent but arouses to voice and follows commands. Family reports that over the past 5 to 6 days he has been increasingly confused, normally is oriented to
month and year but has not been able to answer these questions recently'
Neuro consult states 'low concern for breakthrough seizure ...'
Hospitalist progress notes states 'Seizure like activity, history of epilepsy. Neurology evaluated; felt like his symptoms were related to hypertensive encephalopathy...Hypertensive urgency'
Patient received IV labetalol and Hydralazine on 05/19
Please clarify which is a more accurate diagnosis reflecting the type and acuity of the documented hypertension:
Hypertensive Urgency Only- B/P is severely elevated (systolic > or = to 180 or diastolic > or = to 110) but there is no associated organ damage. Symptoms may include: headache, shortness of breath, nosebleeds, severe anxiety. Treatment usually
consists of addition to or adjusting of oral medications and does not generally necessitate hospitalization.
Hypertensive Emergency - B/P is severely elevated (systolic > or = to 180 or diastolic > or = to 110) but can occur at lower levels especially in patients who did not previously have high B/P. There is usually associated organ damage. Symptoms may
include: memory loss, LOC, CVA, [place], angina, renal failure, pulmonary edema. Generally requires more aggressive treatment and a hospitalization.
Hypertensive Crisis - an acute elevation in B/P that can lead to organ damage. Broad term that is further differentiated to include urgency or emergency based on presence of organ damage.
Other (please specify)
Use of terms such as suspected, likely, concern for, or probable (associated with a specific diagnosis that is being evaluated, monitored, or treated as if it exists) are acceptable and can be coded in the inpatient setting, when documented at the
time of discharge.
Thank you,
Shanique Jean RN, BSN
CDI Specialist
tiger text
Please use your independent medical judgment in providing your response.
[2024-05-22] MEDS: PROCARDIA XL (EXTENDED RELEASE) 30 MG PO (11:19)
--- NOTE | 2024-05-22 11:23 | CM ---
Chart reviewed and caseworker protective services spoke with patient along with physician this am, plan remains for patient to return to [facility]. Per physician patient is not stable today.
[facility]
Report [phone]

Plan; Patient to return to [facility] when stable, no Auth per admissions at [facility] as patient is at baseline, patient will need ambulance transport back to [facility].
--- NOTE | 2024-05-22 11:24 | PN.CDI ---
CDI
- -
CDI:
Physician Documentation Request
Admit Date: 05/19/24 15:02
Dear Doctor Machelle,
Patient presented after seizure like activity to ED. Patient was noted to be 'postictal and somnolent but arouses to voice and follows commands. Family reports that over the past 5 to 6 days he has been increasingly confused, normally is oriented to
month and year but has not been able to answer these questions recently'
Neuro consult states 'low concern for breakthrough seizure ...'
Hospitalist progress notes states 'Seizure like activity, history of epilepsy. Neurology evaluated; felt like his symptoms were related to hypertensive encephalopathy...Hypertensive urgency'
Patient received IV labetalol and Hydralazine on 05/19
ED discharge problem list 'Hypertensive crisis'
Please clarify which is a more accurate diagnosis reflecting the type and acuity of the documented hypertension:
Hypertensive Urgency - B/P is severely elevated (systolic > or = to 180 or diastolic > or = to 110) but there is no associated organ damage. Symptoms may include: headache, shortness of breath, nosebleeds, severe anxiety. Treatment usually consists
of addition to or adjusting of oral medications and does not generally necessitate hospitalization.
Hypertensive Emergency - B/P is severely elevated (systolic > or = to 180 or diastolic > or = to 110) but can occur at lower levels especially in patients who did not previously have high B/P. There is usually associated organ damage. Symptoms may
include: memory loss, LOC, CVA, [place], angina, renal failure, pulmonary edema. Generally requires more aggressive treatment and a hospitalization.
Hypertensive Crisis - an acute elevation in B/P that can lead to organ damage. Broad term that is further differentiated to include urgency or emergency based on presence of organ damage.
Other (please specify)
Use of terms such as suspected, likely, concern for, or probable (associated with a specific diagnosis that is being evaluated, monitored, or treated as if it exists) are acceptable and can be coded in the inpatient setting, when documented at the
time of discharge.
Thank you,
Shanique Jean RN, BSN
CDI Specialist
tiger text
Please use your independent medical judgment in providing your response.
[2024-05-22 12:12] LABS: Glucose - Point of Care 186 mg/dl (70-99)
[2024-05-22] MEDS: NOVOLOG FLEXPEN 10 UNITS SC (12:23)
[2024-05-22] MEDS: NOVOLOG FLEXPEN-LOW RESISTANCE 1 UNITS SC (12:23)
[2024-05-22] MEDS: APRESOLINE 5 MG IV (15:50)
[2024-05-22 16:42] LABS: Glucose - Point of Care 107 mg/dl (70-99)
[2024-05-22] MEDS: NOVOLOG FLEXPEN-LOW RESISTANCE SC (17:03)
[2024-05-22 21:15] LABS: Glucose - Point of Care 103 mg/dl (70-99)
[2024-05-22] MEDS: LANTUS 0.12 UNITS SC (21:16)
[2024-05-23] VITALS (8 sets, daily range): BP systolic 105–156; BP diastolic 63–89; PULSE 76–77
[2024-05-23 07:10] LABS: Glucose - Point of Care 119 mg/dl (70-99)
[2024-05-23] MEDS: NOVOLOG FLEXPEN-LOW RESISTANCE SC ×2 (07:13→16:52)
[2024-05-23 08:36] LABS: Blood Urea Nitrogen 28 mg/dl (9-20); Calcium 9.6 mg/dl (8.4-10.2); Carbon Dioxide 30 mmol/L (22-30); Chloride 105 mmol/L (98-107); Estimated Creatinine Clearance 59 ml/min; Glucose 112 mg/dl (70-99); Potassium 4.6 mmol/L (3.5-5.1); Sodium 141 mmol/L (135-145); eGFR 52.17
[2024-05-23] MEDS: FARXIGA 10 MG PO (08:38)
[2024-05-23] MEDS: CYMBALTA DELAYED RELEASE 120 MG PO (08:38)
[2024-05-23] MEDS: NEURONTIN 1200 MG PO ×2 (08:38→15:27)
[2024-05-23] MEDS: COREG 12.5 MG PO (08:38)
[2024-05-23] MEDS: KCL 20 MEQ PO (08:38)
[2024-05-23] MEDS: OSCAL 500 + D 500 MG PO (08:38)
[2024-05-23] MEDS: ALDACTONE 25 MG PO (08:38)
[2024-05-23] MEDS: PROCARDIA XL (EXTENDED RELEASE) 30 MG PO (08:38)
[2024-05-23] MEDS: PROTONIX 40 MG PO (08:38)
[2024-05-23] MEDS: CRESTOR 20 MG PO (08:38)
[2024-05-23] MEDS: KEPPRA 1500 MG PO (08:39)
[2024-05-23] MEDS: HEPARIN 5000 UNITS SC (08:39)
[2024-05-23] MEDS: CARAFATE 1 GRAM PO (08:39)
[2024-05-23] MEDS: VIMPAT 200 MG PO (08:39)
[2024-05-23] MEDS: GLUCOPHAGE 500 MG PO (08:39)
[2024-05-23] MEDS: LOW STRENGTH ASPIRIN 81 MG PO (08:40)
[2024-05-23] MEDS: FEOSOL 325 MG PO (08:40)
[2024-05-23] MEDS: NOVOLOG FLEXPEN 12 UNITS SC ×2 (10:07→17:00)
[2024-05-23 11:44] LABS: Glucose - Point of Care 201 mg/dl (70-99)
[2024-05-23] MEDS: NOVOLOG FLEXPEN-LOW RESISTANCE 2 UNITS SC (13:49)
[2024-05-23] MEDS: NOVOLOG FLEXPEN 10 UNITS SC (13:49)
--- NOTE | 2024-05-23 13:56 | W.PN.HOSP.TC ---
Today's Communication/Plan
-
dc to SNf today
Assessment / Plan
Assessment / Plan
Assessment:
Seizure like activity
History of epilepsy
- Neurology evaluated; felt like his symptoms were related to hypertensive encephalopathy
- no current neurological deficits, CT head negative
- continue Keppra, lacosamide
Hypertensive urgency
- continue Clonidine 0.2mg patch
- continue Coreg 12.5mg BID
- continue Spironolactone
- continue Nifedipine 30mg daily
- holding fludrocortisone/Droxidopa
[facility] Records to be sent.
suspected CKD, stage 2
- unknown baseline
Orthostatic hypotension
- off droxidopa, fludrocortisone currently
History of traumatic brain injury
History of postconcussive syndrome
- continue gabapentin
Type 2 diabetes
- A1c is 6.5%
- continue Lantus 12 units
- continue metformin
- insulin sliding scale
Diabetic gastroparesis
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
Chronic anemia
- hemoglobin 9.4, unknown baseline
- continue ferrous sulfate
GERD
- continue omeprazole
- continue sucralfate
DVT ppx: Heparin
Code: Full
More than 30 minutes spent in discharge including
Final examination of the patient
Summarizing hospital stay
Instructions for continuing care to all relevant caregivers
Preparation of discharge records, prescriptions, and referral forms
Total time spent (in minutes):41
Anticipated Discharge: Today
Subjective/Interval History
-
Date of Service: May 23, 2024
no new complaints
BP more stable
Objective Data
-
Labs:
Laboratory Results
05/23/24
07:03
Sodium 141
Potassium 4.6
Chloride 105
Carbon Dioxide 30
BUN 28 H
Creatinine 1.6 H
Glucose 112 H
Calcium 9.6
Vital Signs:
Vital Signs
Temp Pulse Resp BP Pulse Ox
97.8 F 76 18 150/89 97
05/23/24 11:20 05/23/24 12:44 05/23/24 11:20 05/23/24 12:44 05/23/24 11:20
I&O
05/22/24 05/23/24 05/24/24
06:59 06:59 06:59
Intake Total 1560 / 1560 840 / 840
Output Total 1200 / 1200
Balance 1560 / 1560 -360 / -360
Physical Exam
-
General: No Apparent Distress
HEENT: Normocephalic and Atraumatic
Respiratory: Negative Wheezes
Cardiac: Regular Rhythm and S1/S2
GI: Soft
Genito-urinary: No Costovertebral Tender
Musculoskeletal: No Edema
Hematologic / Lymphatic: No Lymphadenopathy
Psych: Calm
Data Reviewed
-
Total Time Spent with Patient (in minutes): 42
Labs: Labs Reviewed by me
--- NOTE | 2024-05-23 14:20 | W.DS.TRANS ---
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
-
Discharge Instructions:
Discharge Diagnosis/Procedures Hypertensive encephalopathy
Diet Diabetic, Carb Controlled
Activity As tolerated
Bathing Restrictions None
Instructions:
Stand-Alone Forms:
Changes to Home Medications: Yes
Discharge Medications:
DC Medications w/original date entered in [facility]
acetaminophen 325 mg tablet (Tylenol) 650 mg PO Q8HPRN PRN mild pain 05/19/24
aspirin 81 mg chewable tablet 81 mg PO DAILY Blood Clot Prevention/Tx 05/19/24
bisacodyl 10 mg rectal suppository (Dulcolax (bisacodyl)) 10 mg [place] [id number] PRN if no bm on 3rd day 05/19/24
calcium carbonate 600 mg-vitamin D3 10 mcg (400 unit) tablet (Calcium 600 + D(3)) 1 tab PO BID Supplement 05/19/24
cetylpyridinium chloride 1 karly mucous membrane Q4HPRN PRN cough 05/19/24
clonidine 0.2 mg/24 hr weekly transdermal patch 1 patch transdermal SA Blood Pressure 05/19/24
clonidine HCl 0.1 mg tablet 0.1 mg PO Q8HPRN PRN sbp>170 05/19/24
duloxetine 60 mg capsule,delayed release (Cymbalta) 120 mg PO DAILY 05/19/24
empagliflozin 10 mg tablet (Jardiance) 10 mg PO DAILY 05/19/24
ferrous gluconate 270 mg (27 mg iron) tablet 270 mg PO DAILY 05/19/24
gabapentin 600 mg tablet 1,200 mg PO TID 05/19/24
insulin aspart U-100 100 unit/mL subcutaneous cartridge (Novolog PenFill U-100 Insulin aspart) 12 unit SC BID@0800,1700 05/19/24
insulin aspart U-100 100 unit/mL subcutaneous solution (Novolog U-100 Insulin aspart) 10 unit SC DAILY@1200 05/19/24
insulin glargine 100 unit/mL (3 mL) subcutaneous pen (Lantus Solostar U-100 Insulin) 12 unit SC HS 05/19/24
lacosamide 200 mg tablet (Vimpat) 200 mg PO BID 05/19/24
levetiracetam 500 mg tablet (Keppra) 1,500 mg PO BID 05/19/24
loperamide 2 mg tablet 4 mg PO Q6HPRN PRN diarrhea 05/19/24
metformin 500 mg tablet 500 mg PO BID Diabetes 05/19/24
omeprazole 40 mg capsule,delayed release 40 mg PO DAILY Gastrointestinal Issue 05/19/24
ondansetron HCl 4 mg tablet 4 mg PO Q6HPRN PRN nasuea 05/19/24
polyethylene glycol 3350 17 gram oral powder packet (Miralax) 17 g PO DAILYPRN PRN constipation 05/19/24
potassium chloride 20 mEq tablet,extended release 20 meq PO BID Supplement 05/19/24
rosuvastatin 20 mg tablet 20 mg PO DAILY High Cholesterol 05/19/24
spironolactone 25 mg tablet 25 mg PO DAILY Fluid Retention/Swelling 05/19/24
sucralfate 1 gram tablet (Carafate) 1 g PO BID Gastrointestinal Issue 05/19/24
carvedilol 12.5 mg tablet 12.5 mg PO BID #60 tabs 05/23/24
nifedipine 30 mg tablet,extended release 30 mg PO DAILY #30 tabs 05/23/24
Home Medication Changes
Droxidopa and fludrocortisone stopped
Nifedipine added
Coreg increased
Pending Results: No
Total time spent discharging patient (in min): 42
--- NOTE | 2024-05-23 14:30 | CM ---
Addendum entered by Kayley Guevara 05/23/24 16:43:
Referral for Return to Facility sent to [facility] via [facility]
Addendum entered by Kayley Guevara 05/23/24 16:22:
IMM benefit explained; form signed @ 1619
Father notified of return to [facility] via phone
Addendum entered by Kayley Guevara 05/23/24 15:39:
Ambulance merchandise pickup/receiving associate scheduled for [phone] - [phone]
Original Note:
Per Attending, patient is stable for discharge and return to SNF
Plan: Discharge to [facility] today via ambulance; no AUTH required
Report [phone]
--- NOTE | 2024-05-23 16:30 | PTCARENOTE ---
Addendum entered by Balwinder Martinez RN 05/23/24 18:40:
Transport now to pick patient up at 1999.
Original Note:
Report called to Tia Gipson at [phone]. Patient to be picked up between [phone].
[2024-05-23 16:51] LABS: Glucose - Point of Care 118 mg/dl (70-99)
--- NOTE | 2024-05-23 20:35 | PTCARENOTE ---
Pt discharger to [facility] via [facility] ambulance. VSS
== END 2024-05-23 20:26 | DRG 79 ==
LOC: 4 WEST ACU 15:02
PROVIDERS: Physician Assistant; ADMITTING PHYSICIAN Hospitalist; ATTENDING PHYSICIAN Internal Medicine; EMERGENCY PHYSICIAN Emergency Medicine; FAMILY PHYSICIAN Internal Medicine; OTHER PHYSICIAN Psychiatry & Neurology Neurology
DX: I67.4 Hypertensive encephalopathy (principal); I12.9 Hypertensive chronic kidney disease with stage 1 through stage 4 chronic kidney disease, or unspecified chronic kidney disease; I16.0 Hypertensive urgency; N18.2 Chronic kidney disease, stage 2 (mild); I95.1 Orthostatic hypotension; E11.22 Type 2 diabetes mellitus with diabetic chronic kidney disease; E11.319 Type 2 diabetes mellitus with unspecified diabetic retinopathy without macular edema; E11.39 Type 2 diabetes mellitus with other diabetic ophthalmic complication; E11.43 Type 2 diabetes mellitus with diabetic autonomic (poly)neuropathy; D64.9 Anemia, unspecified; K21.9 Gastro-esophageal reflux disease without esophagitis
CPT/HCPCS: 70450; 80048; 80053; 80177; 81003; 81015; 82962; 83036; 85025; 85027; 93005; 96374; 97163; 97167; 97530; 97535; 99285

== ENCOUNTER 2024-08-21 01:27 | Inpatient (IN) | payer OTHER, SELFPAY ==
[2024-08-20 21:36] VITALS: BP 150/89
[2024-08-20 23:00] VITALS: BMI 25.3
[2024-08-20 23:01] VITALS: BP 166/96
--- NOTE | 2024-08-20 23:17 | ED.GENMED ---
Addendum entered and electronically signed by Pipo Holloway MD 08/22/24 21:09:
Procedure note:
Right posterior scalp laceration: cleansed with shur-clens. no foreign body. simple closure with placement of 6 jacek. wound well approximated. no complication.
Original Note:
History of Present Illness
General
Chief Complaint: Fall
Source: patient, ambulance crew and longterm
Exam Limitations: none
Time Seen by Provider: 08/20/24 22:58
Nursing documentation reviewed up to this point in time: agreed with
History of Present Illness
History of Present Illness:
Patient presents to ED for an evaluation after losing balance and falling backwards onto concrete floor. Patient is complaining of mild headache along with scalp laceration. Patient's vaccinations are up-to-date. Patient denies dizziness or
blurred vision. Denies loss of sensation or weakness. Denies nausea or vomiting. Denies any other injuries from the fall. Patient does take 81 mg aspirin daily.
Review of Systems
Review of Systems
Allergies reviewed?: Yes
All Other Systems: ROS reviewed and negative except as documented in HPI and ROS
Constitutional: Reports no symptoms
Respiratory: Reports no symptoms
Cardiac: Reports no symptoms; Denies chest pain or syncope
ABD/GI: Reports no symptoms; Denies abdominal pain, nausea or vomiting
: Reports no symptoms
Musculoskeletal: Reports no symptoms
Skin: Reports no symptoms
Neurological: Reports headache; Denies dizzy, weakness or numbness
Phy Exam
Physical Exam
Physical Exam:
Physical Exam
General: no apparent distress, not acutely ill. afebrile
Head: an approx 5cm superficial, linear laceration over right posterior scalp, without active bleeding
Neck: supple. no meningeal signs.
Heart: s1/s2 regular rate and rhythm, no murmur. equal radial pulses.
Lungs: no acute respiratory distress. clear bilaterally
Abdomen: normal bowel sounds. not tender.
Neuro: alert and oriented. no focal neurological deficits
Skin: no rash
Psychiatric: well kept. interactive and cooperative
Extremities: no edema. no calf tenderness.
Course
Orders/Labs/Results
Orders:
Orders
08/20/24 21:[address] [CT Head W/o Iv Contrast] Urgent
Comment:
Reason For Exam: Fall/ head injury
08/21/24 00:27
* Blood Bank Products Urgent
Blood Bank Products: *Plt Single Donor Leuko
Quantity: 1
Transfuse Today: Yes
Reason: Bleeding
IV Insert/Care/Rem.- Treatment PRN
08/21/24 00:31
ABO2 Urgent
BBK Wristband Number:
Associate notified that ABO2 has been ordered: [id number]
Date: 08/21/24
Time: 00:50
Primer Inserting Machine Adjuster ID: [id number]
Basic Metabolic Panel Urgent
Complete Blood Count/No Diff Urgent
PTT Urgent
Prothrombin Time Urgent
08/21/24 00:38
Type And Crossmatch [Type+Screen] Urgent
08/21/24 00:57
Desmopressin [Ddavp] 34 mcg 0.9% Sodium Chloride 50 ml [Nss] 50 ml IV NOW
08/21/24 01:00
Flush (0.9% Sodium Chloride) [Flush (Nss)] See Dose Instructions IV PER PROTOCOL
08/21/24 01:02
Admit/Transfer Patient As Directed
Co-Sign Provider:
Level of Care: Inpatient admission
Assign to:: ICU
Physician / Group: hospitalist
Diagnosis: intracranial hemorrhage
Reason for Hospitalization: fall and brain bleed
Expected length of stay greater than two midnights?: Yes
ELOS- Estimated Length of Stay in days: 2
I certify the patient meets the requirements for IP care: Yes
PRN Pain Medication Management As Directed
May give lesser potent ordered pain med per pt: Yes
preference::
Protocol:: Medication orders for pain may be administered in a
manner that supports deferring to patient preference
when the pt is:
- Requesting an ordered lesser potent pain medication.
Least to most potent pain medications are defined
as: acetaminophen < NSAID < tramadol < opioids
(morphine, oxycodone, hydromorphone).
- Requesting a lesser dose of the same medication IF
ORDERED.
- Requesting a less intrusive route of administration
if both routes are prescribed by the provider (PO <
IV).
08/21/24 01:05
Code Status As Directed
Resuscitation Status: Full Code
08/21/24 01:15
Nicardipine 40 mg/200 ml [Cardene] 40 mg in 200 ml IV PER PROTOCOL
Initial dose in mg/hr, then titrate:: 5
Titrate to keep:: SBP 120 - 140 mmHg
Titrate by mg/hr:: 2.5 mg/hr
Frequency of titrations (minutes):: 5-15 minutes
Maximum dose in mg/hr:: 15
Begin to taper infusion when:: Remained at goal for 2hrs
Taper by mg/hr:: 2.5 mg/hr
Frequency of taper (minutes) if patient maintains goal:: every 15-30 minutes
Taper to off?: Yes
If infusion off & no longer maintaining goal:: Contact Provider
08/21/24 01:45
Acetaminophen [Tylenol/Feverall] 650 mg RECTAL Q4HPRN PRN
Acetaminophen [Tylenol] 650 mg PO Q4HPRN PRN
Benzocaine/Menthol [Anesthetic Lozenge] 1 lozenge PO Q4HPRN PRN
Nicardipine 40 mg/200 ml [Cardene] 40 mg in 200 ml IV PER PROTOCOL
Currently infusing. Continue current dose and titrate:: Yes
Titrate to keep:: SBP 120 - 140 mmHg
Titrate by mg/hr:: 2.5 mg/hr
Frequency of titrations (minutes):: 5-15 minutes
Maximum dose in mg/hr:: 15
Begin to taper infusion when:: Remained at goal for 2hrs
Taper by mg/hr:: 2.5 mg/hr
Frequency of taper (minutes) if patient maintains goal:: every 15-30 minutes
Taper to off?: Yes
If infusion off & no longer maintaining goal:: Contact Provider
08/21/24 01:45
Consult Notification Routine
Specialty to Notify: Car Wrecker
Date consulting provider notified: 08/21/24
Time consulting provider notified: 02:09
DIETARY CONSULT Routine
Reason for Consult: stroke/TIA
Car Wrecker Consult Routine
Consulting Provider: Tony Galdamez
Was physician already notified: No
Reason for consult: ICH from fall on aspirin, no surg per neurosurg
Garden Machinery Mechanic Urgent
Activity As Directed
Activity Level: With Assistance
Bedside Glucose Monitoring As Directed
Frequency: AC&HS
Head of Bed-Restrictions As Directed
Elevation Level: 30 degress
NIH Stroke Scale As Directed
Directions: Per protocol
Comment: every shift and with any change in condition or mental status
Neurological Checks As Directed
Frequency: q1h
Additional Instructions:: q1h and with any change in condition or mental status
Patient Education As Directed
Type: Stroke education packet
Comment: provide to patient and family
Pneumatic Compression Sleeves As Directed
Type: Knee high
Vital Signs As Directed
Frequency: Per unit guidelines
Additional Instructions:: goal SBP 120-140 mmHg
Ot Eval And Treat Routine
Pt Eval And Treat Routine
Activity Level: With Assistance
Speech Therapy Eval & Treat Routine
DX Deep Vein Thrombosis Video Routine
08/21/24 02:00
Levetiracetam Injectable [Keppra] 1,500 mg IV Q12
08/21/24 Breakfast
1800 calorie (15 carb) Diabetic
Basic Metabolic Panel IN AM
Complete Blood Count/No Diff IN AM
Magnesium IN AM
08/21/24 06:06
CT Head W/o Iv Contrast Routine
Comment: 6 hours after initial study
Reason For Exam: follow intracranial hemorrhage
08/21/24 07:30
Insulin Aspart Corrective Low [Novolog Flexpen-Low Resistance] See Protocol SC AC
Insulin Aspart Pen [Novolog Flexpen] 6 units SC AC
08/21/24 08:00
Carvedilol [Coreg] 12.5 mg PO BID
Lacosamide [Vimpat] 200 mg PO BID
Pantoprazole [Protonix] 40 mg PO DAILY
Rosuvastatin Calcium [Crestor] 20 mg PO DAILY
08/21/24 22:00
Insulin Glargine Lantus [Lantus] 16 units Subcutaneous Insulin Syringe [Syringe-Insulin] 0 unit SC HS
Abnormal Lab Results
08/21/24
00:31
RBC 3.23 L 10^6/uL
(4.70-6.10)
Hgb 8.6 L g/dL
(13.0-18.0)
Hct 26.5 L %
(39.0-52.0)
MCH 26.6 L pg
(27.0-31.0)
MCHC 32.5 L g/dL
(33.0-37.0)
RDW 14.6 H %
(11.5-14.5)
Potassium 5.3 H mmol/L
(3.5-5.1)
BUN 40 H mg/dl
(9-20)
Creatinine 1.7 H mg/dL
(0.7-1.3)
Glucose 177 H mg/dl
(70-99)
08/21/24 00:31
08/21/24 00:31
Vital Signs
Initial and Last Documented VS:
Initial Vital Signs
Temp Pulse Resp BP Pulse Ox
98.2 F 82 16 150/89 99
08/20/24 21:36 08/20/24 21:36 08/20/24 21:36 08/20/24 21:36 08/20/24 21:36
Last Documented Vital Signs
Temp Pulse Resp BP Pulse Ox
97.1 F 89 16 137/81 98
08/21/24 03:18 08/21/24 01:15 08/20/24 23:30 08/21/24 01:15 08/20/24 23:30
MDM/Problems Addressed
MDM/Problems Addressed:
CT head report reviewed and discussed with oncall neurosx (). Does not feel the patient needs to transfer. However, due to patient taking aspirin, does recommend ordering DDAVP as well as platelets. In addition, recommends Q1 neurochecks,
along with repeat CT head in 6 hours. If there is any change in neurological symptoms, recommends earlier CT as reaching back out to neurosurgery on-call.
Blood product transfusion consent on the chart.
Patient started on nicardipine infusion for blood pressure control. Patient will be admitted to ICU for further evaluation and treatment, including close monitoring.
Critical care statement: A total of 40 minutes of critical care time was provided for this patient. This includes management of unstable vital signs, evaluation of the patient at bedside, reviewing the patient's pertinent medical records, discussion
with consultants, review of old EKGs and review of pertinent medical records. This time with separate from time utilized to perform the aforementioned documented procedures
*Critical Care Note
Total Time (30-74mins, 75-104mins- exclusive of procedures): 40 min
ED Attending Note
-
Portions of this chart may have been created with voice recognition software.� Occasional wrong word or��sound alike� substitutions may have occurred due to the inherent limitations of voice recognition software.
Discharge Plan
Departure
Patient Disposition: Admit
Date of Disposition: 08/21/24
Time of Disposition: 00:38
Admit to: ICU
Presentation/result/management discussed w/ accepting MD/DO: Hospitalist
Discharge Problem:
Intraparenchymal hemorrhage of brain
Interventions
Interventions:
*Risk Screen - Suicide Last Done: 08/21/24 02:00
*General Assessment Last Done: 08/20/24 21:39
*Neglect/Abuse Screening Last Done: 08/20/24 21:39
ED- Fall Risk Assessment Last Done: 08/20/24 22:58
*ED COVID-19 Vaccine History Last Done: 08/20/24 21:39
*Nursing Disposition Last Done: 08/21/24 01:54
ED-Musculoskeletal Assessment Last Done: 08/20/24 22:57
ED- Neurological Assessment Last Done: 08/20/24 22:57
ED-Skin Assessment Last Done: 08/20/24 22:57
Discharge Date and Time
Discharge Date/Time: 08/21/24 01:55
[2024-08-20 23:23] VITALS: BP 177/93
[2024-08-21] VITALS (75 sets, daily range): BP systolic 105–194; BP diastolic 67–111; BMI 23.8
[2024-08-21 00:45] LABS: Hematocrit 26.5 % (39.0-52.0); Hemoglobin 8.6 g/dL (13.0-18.0); Mean Corp Hgb Conc. 32.5 g/dL (33.0-37.0); Mean Corpuscular Hgb 26.6 pg (27.0-31.0); Mean Platelet Volume 8.7 fL (7.4-10.4); Platelet Count 321 10^3/uL (130-400); Red Blood Cell Count 3.23 10^6/uL (4.70-6.10); Red Cell Dist. Width 14.6 % (11.5-14.5); White Blood Cell Count 6.9 10^3/uL (4.8-10.8)
[2024-08-21 00:55] LABS: INR 0.95
[2024-08-21 00:56] LABS: APTT 31.4 Sec (23.4-35.0)
[2024-08-21 00:59] LABS: Blood Urea Nitrogen 40 mg/dl (9-20); Calcium 9.3 mg/dl (8.4-10.2); Carbon Dioxide 25 mmol/L (22-30); Chloride 103 mmol/L (98-107); Estimated Creatinine Clearance 56 ml/min; Glucose 177 mg/dl (70-99); Potassium 5.3 mmol/L (3.5-5.1); Sodium 139 mmol/L (135-145); eGFR 48.21
[2024-08-21] MEDS: CARDENE 200 IV (01:09)
--- NOTE | 2024-08-21 01:26 | HPS.HSE ---
Family Physician
-
Family Physician: NOT KNOW UNKNOWN - PT DOES
Chief Complaint
-
Patient sent [facility] after a fall.
History of Present Illness
This is a 49-year-old with past medical history significant for traumatic brain injury, recurrent syncope, encephalopathy, chronic left-sided hemiplegia, epilepsy without status, legal blindness, insulin-dependent diabetes, hypertension who has
chronic ambulatory dysfunction and [facility] presents to the emergency department after suffering a fall.
Patient was able to describe the event. Stated that he was putting on his 'when he did not ask for assistance. He then fell back hitting the back of his head straight on the floor. He had a significant laceration at that time. And was bleeding.
Gauze was applied and patient was brought to the emergency department. In the ED he is awake somewhat sleepy and able to provide his history. He denies any other symptoms. He has not been feeling lightheaded prior to this episode. He denied any
palpitations chest pain and nausea or vomiting. He denies any recent diarrhea.
On arrival in the emergency department he was hypertensive with a blood pressure of 174/90 satting 98% on room air and afebrile. ECG was nonischemic. Patient had a white count of 6.9 hemoglobin of 8.6 which is similar to prior. BUN and creatinine
are 40 and 1.7 unchanged from prior. His potassium was 5.3. Glucose 177. He had a CT of the head which showed 4 mm hyperattenuating focus along the high right parietal cortex. This is reviewed by neurosurgeon. No indication for surgical
intervention at this time due to the size of the bleed.
Patient had sick jacek placed on the posterior scalp in the ED. Hemostasis achieved.
Neurosurgery provided recommendations for ICU admission.
Medical History
Past Medical History
Past Medical History: Reports HTN and IDDM
Additional Past Medical History:
Orthostatic hypotension
Ambulatory dysfunction
Seizure disorder without status epilepticus
Traumatic brain injury
Left-sided hemiplegia
Anemia
Dissociated disorder
Past Surgical History: Reports Other
Social History
Tobacco: Non-smoker
Alcohol: None
Drug: None
Personal: Single
Living: [facility]
Employment: Disabled
Family History
Family History: Not pertinent
Allergies / Home Medications
Allergies reflects when Allergies were last updated in [facility].
Home Medications with original date entered in [facility]
Allergy/Medication List:
Allergies
Allergy/AdvReac Type Severity Reaction Status Date / Time
Sulfa (Sulfonamide Allergy Unknown Verified 05/19/24 11:21
Antibiotics)
Home Medications
acetaminophen 325 mg tablet (Tylenol) 650 mg PO Q8HPRN PRN mild pain 05/19/24
aspirin 81 mg chewable tablet 81 mg PO DAILY Blood Clot Prevention/Tx 05/19/24
bisacodyl 10 mg rectal suppository (Dulcolax (bisacodyl)) 10 mg HI [id number] PRN if no bm on 3rd day 05/19/24
calcium 600 mg (as carbonate)-vitamin D3 10 mcg (400 unit) tablet (Calcium 600 + D(3)) 1 tab PO BID Supplement 05/19/24
cetylpyridinium chloride 1 karly mucous membrane Q4HPRN PRN cough 05/19/24
clonidine 0.2 mg/24 hr weekly transdermal patch 1 patch transdermal SA Blood Pressure 05/19/24
clonidine HCl 0.1 mg tablet 0.1 mg PO Q8HPRN PRN sbp>170 05/19/24
duloxetine 60 mg capsule,delayed release (Cymbalta) 120 mg PO DAILY 05/19/24
empagliflozin 10 mg tablet (Jardiance) 10 mg PO DAILY 05/19/24
ferrous gluconate 270 mg (27 mg iron) tablet 270 mg PO DAILY 05/19/24
gabapentin 600 mg tablet 1,200 mg PO TID 05/19/24
insulin aspart U-100 100 unit/mL subcutaneous cartridge (Novolog PenFill U-100 Insulin aspart) 8 unit SC BID@0800,1700 05/19/24
insulin aspart U-100 100 unit/mL subcutaneous solution (Novolog U-100 Insulin aspart) 6 unit SC DAILY@1200 05/19/24
insulin glargine 100 unit/mL (3 mL) subcutaneous pen (Lantus Solostar U-100 Insulin) 16 unit SC HS 05/19/24
lacosamide 200 mg tablet (Vimpat) 200 mg PO BID 05/19/24
levetiracetam 500 mg tablet (Keppra) 1,500 mg PO BID 05/19/24
loperamide 2 mg tablet 4 mg PO Q6HPRN PRN diarrhea 05/19/24
metformin 500 mg tablet 500 mg PO BID Diabetes 05/19/24
omeprazole 40 mg capsule,delayed release 40 mg PO DAILY Gastrointestinal Issue 05/19/24
ondansetron HCl 4 mg tablet 4 mg PO Q6HPRN PRN nasuea 05/19/24
polyethylene glycol 3350 17 gram oral powder packet (Miralax) 17 g PO DAILYPRN PRN constipation 05/19/24
potassium chloride 20 mEq tablet,extended release 20 meq PO BID Supplement 05/19/24
rosuvastatin 20 mg tablet 20 mg PO DAILY High Cholesterol 05/19/24
spironolactone 25 mg tablet 25 mg PO DAILY Fluid Retention/Swelling 05/19/24
sucralfate 1 gram tablet (Carafate) 1 g PO BID Gastrointestinal Issue 05/19/24
carvedilol 12.5 mg tablet 12.5 mg PO BID #60 tabs 05/23/24
nifedipine 30 mg tablet,extended release 30 mg PO DAILY #30 tabs 05/23/24
droxidopa 100 mg capsule 100 mg PO TID 08/20/24
Review of Systems
-
History Source: Patient
Constitutional: Reports No Symptoms
EENT: Reports No Symptoms
Respiratory: Reports No Symptoms
Cardiac: Reports No Symptoms
Abdomen/GI: Reports No Symptoms
: Reports No Symptoms
Musculoskeletal: Reports No Symptoms
Skin: Reports No Symptoms
Neurological: Reports No Symptoms
Endocrine: Reports No Symptoms
Hematologic/Lymphatic: Reports No Symptoms
Psych: Reports No Symptoms
Physical Exam
Vital Signs
Vital Signs
Temp Pulse Resp BP Pulse Ox
98.2 F 88 16 156/88 98
08/20/24 21:36 08/21/24 01:00 08/20/24 23:30 08/21/24 01:00 08/20/24 23:30
Physical Exam
General: Well Developed, Well Nourished, No Apparent Distress, Comfortable and Conversant
HEENT: NormoCephalic, Anicteric, Moist mucous membranes and Other (Dresher noted on the posterior scalp without bleeding swelling or erythema.)
Respiratory: Clear
Cardiac: S1/S2 and Regular Rhythm
Breast: Deferred by me
GI: Soft, Non Tender and Normal Bowel Sounds
Rectal: Deferred by Provider
Genito-urinary: Deferred by me
Musculoskeletal: No Clubbing, No Cyanosis, Edema, Left Lower Extremity and Edema, Right Lower Extremity
Skin: Warm
Neuro: AO x 3, Cranial Nerves Intact and No Sensory Deficits
Hematologic/Lymphatic: No Lymphadenopathy
Psych: Calm
Laboratory Results
-
08/21/24 00:31
08/21/24 00:31
Laboratory Results
PT 13.0 Sec (11.4-14.6) 08/21/24 00:31
INR 0.95 08/21/24 00:31
APTT 31.4 Sec (23.4-35.0) 08/21/24 00:31
Data Reviewed
-
CT Scan: Report Reviewed by me
Lab Data: Labs Reviewed by me
Old Records: Reviewed
Impression/Plan
-
IMPRESSION:
Acute intracranial hemorrhage following a fall. 4 mm hyperattenuating focus along the high right parietal cortex. On aspirin. No other AC.
D/W surgery, medical management for now with follow up.
PLAN:
ICH - No focal deficits at this time. HD stable, sleepy but arousable and oriented x 3.
- ddavp given
- transfuse platelets
- nicardipine gtt to keep SBP < 140, dc'd other bp meds except carvedilol
- neurochecks q 1 hours
- repeat CT scan in 6 hours
- continue patients keppra (IV) and locasomide
- trailhead construction worker consult
- neurosurg aware
HTN - On multiple agents including clonidine patch, not present on my examination
- holding spironolactone, clonidine, nifedipine, droxidopa
- continue carvedilol
DM II on insulin
- lantus 16 hs
- aspart 6 tidac
- low dose sliding scale
-hold metofrmin
Anemia - chronic
- continue iron supplementation
DVT PPX - scd
Code status - full code
--- NOTE | 2024-08-21 02:00 | PTCARENOTE ---
rec`d pt at 0200 from ED. flat affect. pt knows hes at the hospital but doesnt know the name of hospital . knows self, knows he fell at [facility]. no blurry vision. legally blind. baseline left sided weakness at baseline. neurochecks continued.
cardene gtt at 5 to maintain SBP 120 to 140 per MD orders. bilateral +2 pitting ankle edema. afebrile. RA. POX 90%-97%. +BS. Pt incontinent with urine. pt saturated from ED, #25 condom cath placed. head stapled with 6 jacek. minimal drainage.
sacral foam placed for protection. Rt pinky toe amputated previous to admission. rt lackey with scabs. 20 rt FA and 20 rt AC. call aranda in reach, safe environment maintained.
[2024-08-21] MEDS: DDAVP 58.5 MCG IV (02:10)
[2024-08-21] MEDS: KEPPRA 1500 MG IV ×2 (02:14→08:46)
[2024-08-21 03:44] LABS: Hematocrit 21.7 % (39.0-52.0); Mean Corp Hgb Conc. 32.3 g/dL (33.0-37.0); Mean Corpuscular Hgb 26.4 pg (27.0-31.0); Mean Corpuscular Volume 81.9 fL (80.0-94.0); Mean Platelet Volume 8.9 fL (7.4-10.4); Platelet Count 245 10^3/uL (130-400); Red Blood Cell Count 2.65 10^6/uL (4.70-6.10); Red Cell Dist. Width 14.5 % (11.5-14.5)
[2024-08-21 04:26] LABS: Blood Urea Nitrogen 41 mg/dl (9-20); Calcium 8.9 mg/dl (8.4-10.2); Carbon Dioxide 27 mmol/L (22-30); Chloride 106 mmol/L (98-107); Estimated Creatinine Clearance 60 ml/min; Glucose 198 mg/dl (70-99); Magnesium 2.3 mg/dl (1.6-2.3); Potassium 4.7 mmol/L (3.5-5.1); Sodium 139 mmol/L (135-145); eGFR 51.84
--- NOTE | 2024-08-21 08:09 | W.PN.HOSP.TC ---
Today's Communication/Plan
-
Await neurosurgery input
Recheck hemoglobin
Assessment / Plan
Assessment / Plan
Gen-AAOx3, NAD
HEENT-NC, AT, anicteric, clear oral mm
Neck-supple
CV-reg, no M, +S1/S2
Lungs-clear B/L
Abd-soft, NT, ND
Ext-no edema
Musculoskeletal-no cyanosis, clubbing
Skin-warm and dry, posterior scalp laceration with jacek
Neuro-grossly non-focal
Psych-calm, cooperative
Acute ICH -due to trauma from fall. Repeat CT done 6 hours later shows stability without change. Neurosurgery consulted. Continue neurochecks. Blood pressure control. Platelets transfused, DDAVP administered.
Chronic orthostatic hypotension -droxidopa.
Epilepsy -continue AED.
Acute on chronic anemia -baseline hemoglobin around 8-9, 7.0 this morning, repeat pending. Will transfuse if anemia persists.
CKD 3a -stable.
Essential hypertension -stable.
DM2 without hyperglycemia -prior to admission he was on metformin 500 mg twice daily, Jardiance 10 mg daily, Lantus 16 units at bedtime, aspart 6 units at lunch and 8 units with breakfast and dinner.
Hyperlipidemia -rosuvastatin.
Traumatic brain injury
Left hemiaplasia
Disassociative disorder
Full code
Dispo -back to [facility] when medically stable.
Anticipated Discharge: Within 24 hours
Subjective/Interval History
-
Date of Service: August 21, 2024
Patient seen and examined. Mild headache otherwise no complaints.
Objective Data
-
Labs:
Laboratory Results
08/21/24 08/21/24 08/21/24
00:31 03:31 08:00
WBC 6.9 7.0
Hgb 8.6 L 7.0 L Pending
Hct 26.5 L 21.7 L Pending
Plt Count 321 245 D
PT 13.0
INR 0.95
APTT 31.4
Sodium 139 139
Potassium 5.3 H 4.7
Chloride 103 106
Carbon Dioxide 25 27
BUN 40 H 41 H
Creatinine 1.7 H 1.6 H
Glucose 177 H 198 H
Calcium 9.3 8.9
Vital Signs:
Vital Signs
Temp Pulse Resp BP Pulse Ox
97.7 F 87 14 132/78 97
08/21/24 04:07 08/21/24 06:15 08/21/24 06:15 08/21/24 06:15 08/21/24 06:15
I&O
08/20/24 08/21/24 08/22/24
06:59 06:59 06:59
Intake Total 508 / 508
Output Total 620 / 620
Balance -112 / -112
Review of Systems
-
History Source: Patient
All other systems: Reviewed and negative
--- NOTE | 2024-08-21 08:30 | PTCARENOTE ---
Pt received start of shift, HR SR w/ 1st degree AV block. Physical assessment as charted. Neuro check completed with outgoing RN at change of shift, unchanged. Pt very drowsy, awakens to verbal. Answers appropriately. Pt bladder scan 686mL, straight
cath. See worklist. Pt assisted with ordering breakfast, pt proceeded to not want to eat breakfast. Natalie gtt - see worklist. Sherin intact on posterior head. Pt c/o ache/throb at staple site. Pt denies any lightheadedness/dizziness.
[2024-08-21] MEDS: COREG 12.5 MG PO ×2 (08:45→17:51)
[2024-08-21] MEDS: PROTONIX 40 MG PO (08:45)
[2024-08-21] MEDS: CRESTOR 20 MG PO (08:46)
[2024-08-21] MEDS: VIMPAT 200 MG PO ×2 (08:46→20:09)
[2024-08-21] MEDS: NOVOLOG FLEXPEN-LOW RESISTANCE 2 UNITS SC (08:48)
[2024-08-21] MEDS: NOVOLOG FLEXPEN 6 UNITS SC ×3 (08:48→17:39)
[2024-08-21 08:58] LABS: Glucose - Point of Care 217 mg/dl (70-99)
[2024-08-21 09:11] LABS: Hematocrit 21.4 % (39.0-52.0); Hemoglobin 6.9 g/dL (13.0-18.0)
--- NOTE | 2024-08-21 11:20 | PTOTSP ---
Speech Language Pathology
Pt seen for cognitive-linguistic evaluation. Pt drowsy and required frequent verbal and tactile stimulation to maintain alertness. Mod cognitive deficits noted. Father stated that pt is somewhat worse than normal, and pt stated he is 'fuzzier'
than normal.
Pt also seen for clinical bedside swallow evaluation. P.O. trials of puree, regular solids, and thin liquids provided. Impulsive rate of intake with regular solids noted. Adequate mastication and oral clearance. No overt signs of aspiration.
Recommend:
(1) Regular solids/thin liquids
(2) Aspiration precautions: eat only when alert, sit upright, supervision for slow rate
(3) Meds as tolerated
(4) RACING CAR DRIVER to continue to follow
--- NOTE | 2024-08-21 11:40 | PTCARENOTE ---
Pt appears slightly more somnolent than beginning of shift. Father at bedside, states drowsiness is more than baseline. Pt arouses to verbal, but needs repeated prompting to stay awake. Rest of neuro unchanged. TT Dr. Garcia w/ update in neuro
status and no additional orders received. Waiting for blood product to be available.
--- NOTE | 2024-08-21 11:47 | CON.INTV ---
Consultation
Consultation Request
Date/Time Consultation Requested: 08/21/2024
Date/Time Consultation Performed: 08/21/2024
Requesting Provider: Dr. Garcia
Performing Provider: Dr. Tony Conde
Reason for Consultation: Subarachnoid hemorrhage status post fall
Medical History
-
History of Present Illness:
49-year-old man with past medical history significant for traumatic brain injury, recurrent syncope, encephalopathy, chronic left sided hemiplegia, epilepsy, legal blindness, insulin-dependent diabetes, hypertension who has chronic ambulatory
dysfunction and is a prison resident. Came to the emergency room on 08/20/2024 after sustaining a fall.
His mental status was close to baseline. He was able to describe what happened.
CT head demonstrated a 4 mm right parietal subarachnoid bleed. He was admitted to the critical care unit at the request of neurosurgery for close observation.
This morning denies any significant headache or blurry vision.
Repeat CT head showed stable bleed.
It is noted that the patient has chronic anemia. There is no evidence of bleeding.
There is no evidence for black stools.
Past Medical History
Past Medical History: Other (As in HPI)
Social History
Tobacco: Non-smoker
Alcohol: None
Drug: None
Living: Senior Living (Traumatic brain injury/ambulatory)
Family History
Family History: Reviewed & Not Pertinent
Allergies / Home Medications
Allergies
Allergy/AdvReac Type Severity Reaction Status Date / Time
Sulfa (Sulfonamide Allergy Unknown Verified 05/19/24 11:21
Antibiotics)
Home Medications
�Medication �Instructions �Recorded �Confirmed �Last Taken �Type
acetaminophen 325 mg tablet 650 mg PO Q8HPRN PRN mild pain 05/19/24 08/20/24 Unknown History
(Tylenol)
aspirin 81 mg chewable tablet 81 mg PO DAILY Blood Clot 05/19/24 08/20/24 Unknown History
Prevention/Tx
bisacodyl 10 mg rectal suppository 10 mg MT [id number] PRN if no bm on 05/19/24 08/20/24 Unknown History
(Dulcolax (bisacodyl)) 3rd day
calcium 600 mg (as 1 tab PO BID Supplement 05/19/24 08/20/24 Unknown History
carbonate)-vitamin D3 10 mcg (400
unit) tablet (Calcium 600 + D(3))
cetylpyridinium chloride 1 karly mucous membrane Q4HPRN PRN 05/19/24 08/20/24 Unknown History
cough
clonidine 0.2 mg/24 hr weekly 1 patch transdermal SA Blood 05/19/24 08/20/24 Unknown History
transdermal patch Pressure
clonidine HCl 0.1 mg tablet 0.1 mg PO Q8HPRN PRN sbp>170 05/19/24 08/20/24 Unknown History
duloxetine 60 mg capsule,delayed 120 mg PO DAILY Mental 05/19/24 08/20/24 Unknown History
release (Cymbalta) Health/Anxiety
empagliflozin 10 mg tablet 10 mg PO DAILY Diabetes 05/19/24 08/20/24 Unknown History
(Jardiance)
ferrous gluconate 270 mg (27 mg 270 mg PO DAILY Supplement 05/19/24 08/20/24 Unknown History
iron) tablet
gabapentin 600 mg tablet 1,200 mg PO TID Pain 05/19/24 08/20/24 Unknown History
insulin aspart U-100 100 unit/mL 8 unit SC BID@0800,1700 Diabetes 05/19/24 08/20/24 Unknown History
subcutaneous cartridge (Novolog
PenFill U-100 Insulin aspart)
insulin aspart U-100 100 unit/mL 6 unit SC DAILY@1200 Diabetes 05/19/24 08/20/24 Unknown History
subcutaneous solution (Novolog
U-100 Insulin aspart)
insulin glargine 100 unit/mL (3 16 unit SC HS Diabetes 05/19/24 08/20/24 Unknown History
mL) subcutaneous pen (Lantus
Solostar U-100 Insulin)
lacosamide 200 mg tablet (Vimpat) 200 mg PO BID Seizures 05/19/24 08/20/24 Unknown History
levetiracetam 500 mg tablet 1,500 mg PO BID Seizures 05/19/24 08/20/24 Unknown History
(Keppra)
loperamide 2 mg tablet 4 mg PO Q6HPRN PRN diarrhea 05/19/24 08/20/24 Unknown History
metformin 500 mg tablet 500 mg PO BID Diabetes 05/19/24 08/20/24 Unknown History
omeprazole 40 mg capsule,delayed 40 mg PO DAILY Gastrointestinal 05/19/24 08/20/24 Unknown History
release Issue
ondansetron HCl 4 mg tablet 4 mg PO Q6HPRN PRN nasuea 05/19/24 08/20/24 Unknown History
polyethylene glycol 3350 17 gram 17 g PO DAILYPRN PRN constipation 05/19/24 08/20/24 Unknown History
oral powder packet (Miralax)
potassium chloride 20 mEq 20 meq PO BID Supplement 05/19/24 08/20/24 Unknown History
tablet,extended release
rosuvastatin 20 mg tablet 20 mg PO DAILY High Cholesterol 05/19/24 08/20/24 Unknown History
spironolactone 25 mg tablet 25 mg PO DAILY Fluid 05/19/24 08/20/24 Unknown History
Retention/Swelling
sucralfate 1 gram tablet (Carafate) 1 g PO BID Gastrointestinal Issue 05/19/24 08/20/24 Unknown History
carvedilol 12.5 mg tablet 12.5 mg PO BID #60 tabs 05/23/24 08/20/24 Unknown Rx
nifedipine 30 mg tablet,extended 30 mg PO DAILY #30 tabs 05/23/24 08/20/24 Unknown Rx
release
droxidopa 100 mg capsule 100 mg PO TID Blood Pressure 08/20/24 08/20/24 Unknown History
Review of Systems
-
History Source: Patient
All other systems: Negative unless noted
Vitals / Labs / Diagnostic Testing
Vital Signs
Temp Pulse Resp BP Pulse Ox
97.6 F 80 14 136/75 97
08/21/24 08:00 08/21/24 11:45 08/21/24 11:45 08/21/24 11:30 08/21/24 11:45
Lab Data
08/21/24 08:50
08/21/24 03:31
Laboratory Results
08/21/24
00:31
PT 13.0
INR 0.95
APTT 31.4
Diagnostic Testing:
Physical Exam
-
HEENT: Normocephalic
Cardiovascular: S1/S2
Respiratory: Non-Labored Respirations
GI: Soft and Non Distended
Neurology: Awake, Alert, AO x 3 and No Motor Deficits
Skin: Warm and Other (Occipital laceration. Status post stapling. No evidence for bleeding)
General: Comfortable
Assessment
-
49-year-old man came to the hospital from prison after sustaining a fall. CT head showed small 4 mm subarachnoid hemorrhage-transferred to the critical care unit for close monitoring.
Intracranial hemorrhage-4 mm right parietal.
CT head 08/20/2024: 4 mm parietal subarachnoid hemorrhage
CT head 08/21/2024: Stable 4 mm subarachnoid hemorrhage.
Chronic anemia: Likely hypoproliferative
Occipital laceration-status post staple
Conditions present prior admission:
Hypertension
Diabetes on insulin
Chronic anemia
Chronic kidney disease
Traumatic brain injury/ambulatory dysfunction-prison resident.
Assessment and plan:
Admitted to critical care for close observation: Status post fall with subsequent 4 mm parietal subarachnoid hemorrhage.
Nonfocal on exam.
Has been sleepy since admission but arousable.
Continue with frequent neurochecks
ICU monitoring until cleared by neurosurgery.
On CAT scans from this morning no expansion of subarachnoid hemorrhage
Fall precaution
Hold aspirin
-
Occipital laceration: Status post stapling. No evidence for bleeding.
-
Continue blood pressure control
Continue outpatient medication
Per father at the bedside, apparently he has been having blood pressure issues for a while. Labile blood pressure with syncopal episodes
Nicardipine will be used for persistent blood pressure over 150.
-
If he remains somnolent will need to hold off on some of his sedative medications including gabapentin at least temporarily.
Head of the bed elevation
Aspiration precautions
Continue to monitor mental status closely. Currently arousable, has a cough effort.
-----
Patient status post DDAVP/platelet transfusion
Follow CBC.
-
Chronic anemia current hemoglobin 6.9.
No evidence for bleeding.
Will transfuse 1 unit of packed red blood cells.
-
Continue antiepileptic drugs
-
Chronic renal insufficiency. Stable
-
Okay to advance diet
-
Glycemic control continue outpatient medications.
-
Continue ICU monitoring until cleared by neurosurgery.
[2024-08-21 12:05] LABS: Glucose - Point of Care 198 mg/dl (70-99)
--- NOTE | 2024-08-21 12:05 | CM ---
CM following re: discharge planning.
Discussed in Rounds, reviewed pt's chart, met with pt.
Pt is a 49 year old male, admitted with primary dx of Acute on chronic anemia. PMH includes TBI.
Pt is a LTC resident at [facility], has supportive parents, w/c bound, requires total care at the intermediate. Pt is on Medicaid 15 day bed hold.
D/C plan: return back to [facility] for a LTC when medically stable.
CM will follow with discharge plan updates as hospitalization progresses
--- NOTE | 2024-08-21 12:07 | CON.NS ---
Consultation
-
Date/Time Consultation Performed: 08/21/2024; 12:10
Performing Provider: Lissette
Chief Complaint
History of Present Illness
This is a 49-year-old gentleman who presented after mechanical fall yesterday evening on concrete. He presents to the emergency room with headache. He had a noncontrast CT scan of the head which demonstrated small right frontal intraparenchymal
ICH. Patient, on further review of medications, was found to be on aspirin 81 mg. Patient received platelets, DDAVP for reversal.
Patient seen and examined. Father is a bedside. Patient has a history of multiple traumatic injuries, seizure history, and resides in a detention. He is on antiepileptics.
Patient offers no complaints. He is undergoing PRBC transfusion for anemia.
Review of Systems
-
10 point review of systems including constitutional, ENT, cardiovascular, respiratory, GI, , endocrine, hematologic, neurologic, musculoskeletal, was performed, was negative, except for stated in HPI
Medication and Allergies
Home Medications
Home Medications
�Medication �Instructions �Recorded
acetaminophen 325 mg tablet 650 mg PO Q8HPRN PRN mild pain 05/19/24
(Tylenol)
aspirin 81 mg chewable tablet 81 mg PO DAILY Blood Clot 05/19/24
Prevention/Tx
bisacodyl 10 mg rectal suppository 10 mg IA [id number] PRN if no bm on 05/19/24
(Dulcolax (bisacodyl)) 3rd day
calcium 600 mg (as 1 tab PO BID Supplement 05/19/24
carbonate)-vitamin D3 10 mcg (400
unit) tablet (Calcium 600 + D(3))
cetylpyridinium chloride 1 karly mucous membrane Q4HPRN PRN 05/19/24
cough
clonidine 0.2 mg/24 hr weekly 1 patch transdermal SA Blood 05/19/24
transdermal patch Pressure
clonidine HCl 0.1 mg tablet 0.1 mg PO Q8HPRN PRN sbp>170 05/19/24
duloxetine 60 mg capsule,delayed 120 mg PO DAILY Mental 05/19/24
release (Cymbalta) Health/Anxiety
empagliflozin 10 mg tablet 10 mg PO DAILY Diabetes 05/19/24
(Jardiance)
ferrous gluconate 270 mg (27 mg 270 mg PO DAILY Supplement 05/19/24
iron) tablet
gabapentin 600 mg tablet 1,200 mg PO TID Pain 05/19/24
insulin aspart U-100 100 unit/mL 8 unit SC BID@0800,1700 Diabetes 05/19/24
subcutaneous cartridge (Novolog
PenFill U-100 Insulin aspart)
insulin aspart U-100 100 unit/mL 6 unit SC DAILY@1200 Diabetes 05/19/24
subcutaneous solution (Novolog
U-100 Insulin aspart)
insulin glargine 100 unit/mL (3 16 unit SC HS Diabetes 05/19/24
mL) subcutaneous pen (Lantus
Solostar U-100 Insulin)
lacosamide 200 mg tablet (Vimpat) 200 mg PO BID Seizures 05/19/24
levetiracetam 500 mg tablet 1,500 mg PO BID Seizures 05/19/24
(Keppra)
loperamide 2 mg tablet 4 mg PO Q6HPRN PRN diarrhea 05/19/24
metformin 500 mg tablet 500 mg PO BID Diabetes 05/19/24
omeprazole 40 mg capsule,delayed 40 mg PO DAILY Gastrointestinal 05/19/24
release Issue
ondansetron HCl 4 mg tablet 4 mg PO Q6HPRN PRN nasuea 05/19/24
polyethylene glycol 3350 17 gram 17 g PO DAILYPRN PRN constipation 05/19/24
oral powder packet (Miralax)
potassium chloride 20 mEq 20 meq PO BID Supplement 05/19/24
tablet,extended release
rosuvastatin 20 mg tablet 20 mg PO DAILY High Cholesterol 05/19/24
spironolactone 25 mg tablet 25 mg PO DAILY Fluid 05/19/24
Retention/Swelling
sucralfate 1 gram tablet (Carafate) 1 g PO BID Gastrointestinal Issue 05/19/24
carvedilol 12.5 mg tablet 12.5 mg PO BID #60 tabs 05/23/24
nifedipine 30 mg tablet,extended 30 mg PO DAILY #30 tabs 05/23/24
release
droxidopa 100 mg capsule 100 mg PO TID Blood Pressure 08/20/24
Allergies
Allergies
Allergy/AdvReac Type Severity Reaction Status Date / Time
Sulfa (Sulfonamide Allergy Unknown Verified 05/19/24 11:21
Antibiotics)
Physical Exam
-
Exam:
Sleepy, but opens eyes, and is verbal and responds briskly to voice.
Follows commands.
Cranial nerves II to XII are grossly intact.
Motor: 5/5 strength bilaterally in upper and lower extremities.
No evidence of pronator drift.
Head is normocephalic/atraumatic
Neck is supple
Abdomen is soft
Cardiac: Regular rate
Extremities are warm
Noncontrast CT scan of the head performed on 08/20/2024 at approximately 10:45 PM demonstrated small focus of hyperdensity within the right frontal lobe, suspicious for traumatic subarachnoid hemorrhage/contusion. Follow-up CT scan of the head
performed on 08/21/2024, at approximately 4:30 AM, demonstrates overall stability, and less apparent area, possible decrease in size. No new areas of hemorrhage are seen.
Problems
-
Problem Status Onset Code
Intraparenchymal hemorrhage of brain I61.9
Assessment / Plan
-
This is a 49-year-old gentleman who presented after sustaining a mechanical fall onto head, with small right frontal 3 mm intraparenchymal contusion. Follow-up imaging is stable.
Given this, no further imaging is needed, less neurological examination changes.
Patient should hold aspirin 81 mg until follow-up head CT is obtained in approximately 2 to 3 weeks.
Okay for DVT prophylaxis.
Continue epileptics as preadmission.
Follow-up in the office in approximately 2 to [address]
Patient can go home per my specialty: Today
--- NOTE | 2024-08-21 13:00 | PTCARENOTE ---
Ordered unit of PRBCs infusing - see TAR. Bladder scan for 546. Pt's father states pt has struggled with urinary retention in the past and did need a andrade previously. TT Dr. Garcia w/ update on urinary status, andrade and Flomax orders placed.
--- NOTE | 2024-08-21 13:11 | W.PN.UPDATE ---
Update Note
Progress Note Update
Cleared by neurosurgery to be moved out of the ICU.
To get transfusion today
Transfer to telemetry
Hopefully discharge soon
[2024-08-21] MEDS: NOVOLOG FLEXPEN-LOW RESISTANCE 1 UNITS SC ×2 (13:22→17:40)
[2024-08-21] MEDS: FLOMAX 0.4 MG PO (13:35)
--- NOTE | 2024-08-21 13:50 | PTCARENOTE ---
Spoke with Dr Conde regarding plan of care following visit from neurosurgery. Natalie cabral d/c, pt now medsur level of care.
[2024-08-21 17:46] LABS: Glucose - Point of Care 188 mg/dl (70-99)
[2024-08-21] MEDS: TYLENOL 650 MG PO (17:52)
--- NOTE | 2024-08-21 18:01 | PTCARENOTE ---
Pt BP 179/87. Updated Dr. Rendon via TT, 1999 dose 12.5mg PO coreg given early per order
--- NOTE | 2024-08-21 18:56 | W.PN.UPDATE ---
Update Note
Progress Note Update
Cross Coverage Update:
Notified by nurse patient's blood pressure elevated 170s, here for intracranial hemorrhage recently downgraded to Tele. No acute distress.
Evening Coreg given early with subsequent improvement in BP to systolic 151.
Discussed care with primary attending, patient's home Nifedipine and Aldactone resumed with holding parameters
Discussed with nurse.
--- NOTE | 2024-08-21 20:00 | PTCARENOTE ---
Received pt via handoff. Pt AAOx3, flat affect, sluggish pupil response bilaterally. NSR, palpable pulses. Hypoactive bowel sounds in all 4Q. Leon CDI drain yellow sedimentary urine. Skin CDI. No fluids running at this time. Call aranda at bedside.
[2024-08-21] MEDS: PROCARDIA XL (EXTENDED RELEASE) 30 MG PO (20:08)
[2024-08-21] MEDS: ALDACTONE 25 MG PO (20:08)
[2024-08-21] MEDS: KEPPRA 1500 MG PO (20:09)
[2024-08-21 22:25] LABS: Glucose - Point of Care 202 mg/dl (70-99)
[2024-08-21] MEDS: LANTUS 0.16 UNITS SC (22:27)
[2024-08-22 00:58] VITALS: BP 178/100
[2024-08-22 01:01] LABS: Glucose - Point of Care 119 mg/dl (70-99)
[2024-08-22 04:44] VITALS: BP 100/56
[2024-08-22 07:30] VITALS: BP 137/71
[2024-08-22 07:33] LABS: Glucose - Point of Care 155 mg/dl (70-99)
[2024-08-22 07:51] LABS: % Basophils 0.4 % (0-2); % Eosinophils 2.2 % (0-6); % Immature Granulocytes 0.7 % (0-0.5); % Lymphocytes 19.1 % (20.5-51.1); % Monocytes 8.8 % (1.7-9.3); % Neutrophils 68.8 % (42.2-75.2); Absolute Eosinophils 0.2 10^3/uL (0-0.7); Absolute Immature Granulocytes 0.1 10^3/uL (0-0.05); Absolute Lymphocytes 1.4 10^3/uL (1.2-3.4); Absolute Monocytes 0.6 10^3/uL (0.1-0.6); Absolute Neutrophils 4.9 10^3/uL (1.4-6.5); Hemoglobin 8.9 g/dL (13.0-18.0); Mean Corp Hgb Conc. 31.8 g/dL (33.0-37.0); Mean Corpuscular Hgb 26.5 pg (27.0-31.0); Mean Corpuscular Volume 83.3 fL (80.0-94.0); Mean Platelet Volume 8.7 fL (7.4-10.4); Nucleated Red Blood Cells % 0 % (-); Platelet Count 242 10^3/uL (130-400); Red Blood Cell Count 3.36 10^6/uL (4.70-6.10); Red Cell Dist. Width 14.2 % (11.5-14.5); White Blood Cell Count 7.2 10^3/uL (4.8-10.8)
[2024-08-22] MEDS: NOVOLOG FLEXPEN 6 UNITS SC (08:45)
[2024-08-22] MEDS: NOVOLOG FLEXPEN-LOW RESISTANCE 1 UNITS SC (08:46)
[2024-08-22] MEDS: FLOMAX 0.4 MG PO (08:47)
[2024-08-22] MEDS: COREG 12.5 MG PO (08:47)
[2024-08-22] MEDS: PROTONIX 40 MG PO (08:47)
[2024-08-22] MEDS: KEPPRA 1500 MG PO (08:47)
[2024-08-22] MEDS: CRESTOR 20 MG PO (08:47)
[2024-08-22] MEDS: VIMPAT 200 MG PO (08:50)
--- NOTE | 2024-08-22 09:20 | W.PN.HOSP.TC ---
Today's Communication/Plan
-
Discharge
Assessment / Plan
Assessment / Plan
Gen-AAOx3, NAD
HEENT-NC, AT, anicteric, clear oral mm
Neck-supple
CV-reg, no M, +S1/S2
Lungs-clear B/L
Abd-soft, NT, ND
Ext-no edema
Musculoskeletal-no cyanosis, clubbing
Skin-warm and dry, posterior scalp laceration with jacek
Neuro-grossly non-focal
Psych-calm, cooperative
Acute ICH -due to trauma from fall. Repeat CT done 6 hours later shows stability without change. Platelets transfused, DDAVP administered. Neurosurgery recommends conservative management. Repeat CT head in 2 weeks and follow-up as an outpatient.
Hold aspirin on discharge until CT head repeated. Discussed with patient.
Hyperkalemia -present on admission. Resolved.
Chronic orthostatic hypotension -droxidopa.
Epilepsy -continue AED.
Acute on chronic anemia -baseline hemoglobin around 8-9. Etiology of acute anemia unclear. Hemoglobin improved from 6.9 to 8.9 after 1 unit of transfusion. Can check CBC as an outpatient.
CKD 3a -stable.
Essential hypertension -stable.
DM2 without hyperglycemia -prior to admission he was on metformin 500 mg twice daily, Jardiance 10 mg daily, Lantus 16 units at bedtime, aspart 6 units at lunch and 8 units with breakfast and dinner.
Glucose 155 this morning.
Hyperlipidemia -rosuvastatin.
Traumatic brain injury
Left hemiaplasia
Disassociative disorder
Full code
Dispo -medically stable for discharge back to intermediate today. Case management aware. I left a voicemail with discharge instructions for the mother. Provided my callback number for any questions.
35 minutes spent in discharge process.
Anticipated Discharge: Today
Subjective/Interval History
-
Date of Service: August 22, 2024
Patient seen and examined. Complaining of 5 out of 10 headache. Denies nausea.
Objective Data
-
Labs:
Laboratory Results
08/22/24
06:02
WBC 7.2
Hgb 8.9 L D
Hct 28.0 L
Plt Count 242
Vital Signs:
Vital Signs
Temp Pulse Resp BP Pulse Ox
98.2 F 74 16 137/71 96
08/22/24 07:30 08/22/24 08:47 08/22/24 07:30 08/22/24 08:47 08/22/24 07:30
I&O
08/21/24 08/22/24 08/23/24
06:59 06:59 06:59
Intake Total 508 / 508 730 / 730
Output Total 620 / 620 2525 / 2525
Balance -112 / -112 -1795 / -1795
Review of Systems
-
History Source: Patient
All other systems: Reviewed and negative
[2024-08-22] MEDS: TYLENOL 650 MG PO (09:31)
--- NOTE | 2024-08-22 09:31 | W.DS.TRANS ---
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
-
Discharge Instructions:
Discharge Diagnosis/Procedures Intracranial hemorrhage, acute anemia, acute
urinary retention
Diet Diabetic, Carb Controlled
Activity No strenuous activity
Driving Restrictions No driving
Bathing Restrictions None
Blood Work CBC, BMP next week
Instructions:
Stand-Alone Forms:
Changes to Home Medications: Yes
Discharge Medications:
DC Medications w/original date entered in [facility]
acetaminophen 325 mg tablet (Tylenol) 650 mg PO Q8HPRN PRN mild pain 05/19/24
bisacodyl 10 mg rectal suppository (Dulcolax (bisacodyl)) 10 mg OK [id number] PRN if no bm on 3rd day 05/19/24
calcium 600 mg (as carbonate)-vitamin D3 10 mcg (400 unit) tablet (Calcium 600 + D(3)) 1 tab PO BID Supplement 05/19/24
cetylpyridinium chloride 1 karly mucous membrane Q4HPRN PRN cough 05/19/24
clonidine 0.2 mg/24 hr weekly transdermal patch 1 patch transdermal SA Blood Pressure 05/19/24
clonidine HCl 0.1 mg tablet 0.1 mg PO Q8HPRN PRN sbp>170 05/19/24
duloxetine 60 mg capsule,delayed release (Cymbalta) 120 mg PO DAILY Mental Health/Anxiety 05/19/24
empagliflozin 10 mg tablet (Jardiance) 10 mg PO DAILY Diabetes 05/19/24
ferrous gluconate 270 mg (27 mg iron) tablet 270 mg PO DAILY Supplement 05/19/24
insulin aspart U-100 100 unit/mL subcutaneous cartridge (Novolog PenFill U-100 Insulin aspart) 8 unit SC BID@0800,1700 Diabetes 05/19/24
insulin aspart U-100 100 unit/mL subcutaneous solution (Novolog U-100 Insulin aspart) 6 unit SC DAILY@1200 Diabetes 05/19/24
insulin glargine 100 unit/mL (3 mL) subcutaneous pen (Lantus Solostar U-100 Insulin) 16 unit SC HS Diabetes 05/19/24
lacosamide 200 mg tablet (Vimpat) 200 mg PO BID Seizures 05/19/24
levetiracetam 500 mg tablet (Keppra) 1,500 mg PO BID Seizures 05/19/24
loperamide 2 mg tablet 4 mg PO Q6HPRN PRN diarrhea 05/19/24
metformin 500 mg tablet 500 mg PO BID Diabetes 05/19/24
omeprazole 40 mg capsule,delayed release 40 mg PO DAILY Gastrointestinal Issue 05/19/24
ondansetron HCl 4 mg tablet 4 mg PO Q6HPRN PRN nasuea 05/19/24
polyethylene glycol 3350 17 gram oral powder packet (Miralax) 17 g PO DAILYPRN PRN constipation 05/19/24
rosuvastatin 20 mg tablet 20 mg PO DAILY High Cholesterol 05/19/24
spironolactone 25 mg tablet 25 mg PO DAILY Fluid Retention/Swelling 05/19/24
sucralfate 1 gram tablet (Carafate) 1 g PO BID Gastrointestinal Issue 05/19/24
carvedilol 12.5 mg tablet 12.5 mg PO BID #60 tabs 05/23/24
nifedipine 30 mg tablet,extended release 30 mg PO DAILY #30 tabs 05/23/24
droxidopa 100 mg capsule 100 mg PO TID Blood Pressure 08/20/24
gabapentin 300 mg capsule 300 mg PO TID #90 caps 08/22/24
tamsulosin 0.4 mg capsule 0.4 mg PO DAILY #0 caps 08/22/24
Home Medication Changes
Gabapentin dose reduced
Aspirin discontinued
Potassium chloride discontinued
Pending Results: No
[2024-08-22 09:53] VITALS: BP 127/72; BP 152/86; PULSE 76; O2SAT 97
[2024-08-22 09:58] VITALS: BP 151/85; PULSE 78; O2SAT 97
--- NOTE | 2024-08-22 10:09 | CM ---
Addendum entered by Kathryn Barker RN 08/22/24 10:45:
[facility] Admission updated on discharge and clinical sent through [facility].
Original Note:
Reviewed the chart notes and spoke with the patient at the bedside and left voice message for mother. Patient to be discharged back to [facility] today. IMM reviewed. CM continues to be available to patient/family and is monitoring medical
plan for needs at discharge.
Plan: Discharge back to [facility].
Call report to: [phone]
Fax report to: [phone]
Medical and transport forms on chart.
[2024-08-22] MEDS: MIRALAX 17 GRAMS PO (10:29)
[2024-08-22 11:20] VITALS: BP 123/68
== END 2024-08-22 12:05 | DRG 86 ==
LOC: 2 NORTH 01:27
PROVIDERS: Nurse Practitioner Primary Care; ADMITTING PHYSICIAN Internal Medicine; ATTENDING PHYSICIAN Hospitalist; CONSULT PHYSICIAN Internal Medicine Critical Care Medicine; CONSULT PHYSICIAN Neurological Surgery; EMERGENCY PHYSICIAN Emergency Medicine
PROC: 30233N1 Transfusion of Nonautologous Red Blood Cells into Peripheral Vein, Percutaneous Approach (ICD-10-PCS; 2024-08-21)
PROC: 30233R1 Transfusion of Nonautologous Platelets into Peripheral Vein, Percutaneous Approach (ICD-10-PCS; 2024-08-21)
DX: S06.6X0A Traumatic subarachnoid hemorrhage without loss of consciousness, initial encounter (principal); G81.92 Hemiplegia, unspecified affecting left dominant side; Z79.82 Long term (current) use of aspirin; Y92.129 Unspecified place in nursing home as the place of occurrence of the external cause; W01.0XXA Fall on same level from slipping, tripping and stumbling without subsequent striking against object, initial encounter; E87.5 Hyperkalemia; I95.1 Orthostatic hypotension; G40.909 Epilepsy, unspecified, not intractable, without status epilepticus; N18.31 Chronic kidney disease, stage 3a; I12.9 Hypertensive chronic kidney disease with stage 1 through stage 4 chronic kidney disease, or unspecified chronic kidney disease; D64.9 Anemia, unspecified
CPT/HCPCS: 70450; 80048; 82962; 83735; 85014; 85018; 85025; 85027; 85610; 85730; 86850; 86900; 86901; 86920; 87070; 87147; 92523; 92610; 97162; 97166; 99291; J2597; P9016; P9073

== ENCOUNTER → 2024-09-17 08:42 | Outpatient (REF) | payer OTHER, SELFPAY | LOC: RAD 08:42 | PROVIDERS: ATTENDING PHYSICIAN Physician Assistant Medical; FAMILY PHYSICIAN Internal Medicine | DX: S06.6XAA Traumatic subarachnoid hemorrhage with loss of consciousness status unknown, initial encounter (principal) | CPT/HCPCS: 70450 ==

== ENCOUNTER 2025-09-03 22:24 | Inpatient (IN) | payer OTHER, SELFPAY ==
[2025-09-03] VITALS (10 sets, daily range): BP systolic 115–161; BP diastolic 73–89; BMI 28.0
[2025-09-03 15:58] LABS: Hematocrit 30.9 % (39.0-52.0); Hemoglobin 10.1 g/dL (13.0-18.0); Mean Corp Hgb Conc. 32.7 g/dL (33.0-37.0); Mean Corpuscular Volume 78.0 fL (80.0-94.0); Nucleated Red Blood Cells % 0 % (-); Platelet Count 267 10^3/uL (130-400); Red Cell Dist. Width 14.3 % (11.5-14.5)
[2025-09-03 16:05] LABS: ALT (SGPT) 21 U/L (0-50); AST (SGOT) 20 U/L (17-59); Albumin 3.4 g/dl (3.5-5.0); Alkaline Phosphatase 107 U/L (38-126); Blood Urea Nitrogen 33 mg/dl (9-20); Calcium 9.7 mg/dl (8.4-10.2); Carbon Dioxide 26 mmol/L (22-30); Chloride 105 mmol/L (98-107); Estimated Creatinine Clearance 40 ml/min; Glucose 97 mg/dl (70-99); Potassium 4.3 mmol/L (3.5-5.1); Sodium 138 mmol/L (135-145); Total Protein 6.1 g/dl (6.3-8.2); eGFR 31.67
[2025-09-03 17:02] LABS: Urine Character Clear (Clear)
[2025-09-03] MEDS: NSS 1000 IV (18:22)
[2025-09-03 18:46] LABS: COVID-19 Antigen Negative (Negative)
--- NOTE | 2025-09-03 20:25 | ED.GENMED ---
History of Present Illness
<Pamela Escobar NP - Last Filed: 09/03/25 23:17>
General
Chief Complaint: Change in Mental Status
Source: ambulance crew and long term
Exam Limitations: none
Time Seen by Provider: 09/03/25 18:10
Nursing documentation reviewed up to this point in time: agreed with
History of Present Illness
History of Present Illness:
Patient to the emergency department from long term for report of altered mental status/lethargy. According to report patient is usually talkative, conversant however today he is only giving yes and no answers. No reported fever or chills. He
was brought to the emergency department via EMS for evaluation.
Past History
<Pamela Escobar NP - Last Filed: 09/03/25 23:17>
Past History
ED Past Medical History: HTN, Hypercholesterolemia, IDDM, Seizures and Other (Aphasia, migraines, neuropathy, TBI, gastroparesis)
Review of Systems
<Pamela Escobar NP - Last Filed: 09/03/25 23:17>
Review of Systems
Allergies reviewed?: Yes
All Other Systems: ROS reviewed and negative except as documented in HPI and ROS
Constitutional: Reports fatigue
EENT: Reports no symptoms
Respiratory: Reports no symptoms
Cardiac: Reports no symptoms
ABD/GI: Reports no symptoms
: Reports no symptoms
Musculoskeletal: Reports no symptoms
Skin: Reports no symptoms
Neurological: Reports weakness
Psychiatric: Reports no symptoms
Phy Exam
<Pamela Escobar NP - Last Filed: 09/03/25 23:17>
General Physical Exam
General Presentation: mild distress
General age: appears older than age
General Skin: warm and dry
General Habitus: debilitated
General Mental: other (Responding with yes and no answers)
General Hydration: dry mucous membranes and poor skin turgor
Cardiovascular Exam
Cardiovascular Exam: regular rate/rhythm and no edema
Pulmonary Exam
Pulmonary Exam: lungs clear and no respiratory distress
Gastrointestinal Exam
Gastrointestinal Exam: normal bowel sounds, non tender, soft, no organomegaly and non distended
Musculoskeletal Exam
Musculoskeletal Exam: edema (+1 edema bilateral lower extremities) and neuro vasc intact
Skin Exam
Skin Exam: normal color, warm/dry and no rash
Course
<Pamela Escobar HOME CARE MANAGER RN - Last Filed: 09/03/25 23:17>
Orders/Labs/Results
Orders:
Orders
09/03/25 15:29
Electrocardiogram (*1) Urgent
Reason for Study: Fatigue / Weakness
EKG- Treatment ONCE
09/03/25 15:42
CMP [Comprehensive Metabolic Panel] Urgent
Complete Blood Count/With Diff Urgent
09/03/25 16:08
Straight Cath As Directed
Frequency: One time now
09/03/25 16:10
Urinalysis Reflex To Culture Urgent
Date Specimen was Collected: 09/03/25
Time Specimen was Collected: 16:09
Urine Microscopic Reflex Cult Urgent
09/03/25 18:18
0.9% Sodium Chloride 1000 ml [Nss] 1,000 ml IV BOLUS
CR Chest - 2 Views Urgent
Comment:
Reason For Exam: cough
09/03/25 18:19
CT Head W/o Iv Contrast Urgent
Comment:
Reason For Exam: altered mental status.
09/03/25 18:23
COVID-19 Antigen Urgent
Source: Nasal Swab
Influenza A+B Rapid Molecular Urgent
KARIS Source: Nasal Swab
Specimen Description:
09/03/25 20:23
Bladder Scan- Treatment ONCE
09/03/25 21:42
Kidney & Bladder US [US Renal With Bladder] Routine
Comment:
Reason For Exam: renal insufficiency
09/03/25 21:49
Admit/Transfer Patient As Directed
Co-Sign Provider:
Level of Care: Inpatient admission
Assign to:: Medical/Surgical
Physician / Group: Sylvain
Diagnosis: Lethargy
Reason for Hospitalization: Lethargy
Expected length of stay greater than two midnights?: Yes
ELOS- Estimated Length of Stay in days: 2
I certify the patient meets the requirements for IP care: Yes
09/03/25 21:50
PRN Pain Medication Management As Directed
May give lesser potent ordered pain med per pt: Yes
preference::
Protocol:: Medication orders for pain may be administered in a
manner that supports deferring to patient preference
when the pt is:
- Requesting an ordered lesser potent pain medication.
Least to most potent pain medications are defined
as: acetaminophen < NSAID < tramadol < opioids
(morphine, oxycodone, hydromorphone).
- Requesting a lesser dose of the same medication IF
ORDERED.
- Requesting a less intrusive route of administration
if both routes are prescribed by the provider (PO <
IV).
09/03/25 21:55
Code Status As Directed
Resuscitation Status: Full Code
09/03/25 22:25
Keppra (Levetiracetam) [S] Stat
Abnormal Lab Results
09/03/25 09/03/25
15:42 16:10
RBC 3.96 L 10^6/uL
(4.70-6.10)
Hgb 10.1 L g/dL
(13.0-18.0)
Hct 30.9 L %
(39.0-52.0)
MCV 78.0 L fL
(80.0-94.0)
MCH 25.5 L pg
(27.0-31.0)
MCHC 32.7 L g/dL
(33.0-37.0)
Lymphocytes % 19.4 L %
(20.5-51.1)
BUN 33 H mg/dl
(9-20)
Creatinine 2.4 H mg/dL
(0.7-1.3)
Total Protein 6.1 L g/dl
(6.3-8.2)
Albumin 3.4 L g/dl
(3.5-5.0)
Ur Occult Blood Reflex 1+ A
(Negative)
Urine RBC 3-6 A /HPF
(0-2)
Urine Bacteria (Reflex) Few A
(Negative)
Urine Glucose 4+ A
(Negative)
Urine Albumin (Reflex) 4+ A
(Neg - Trace)
09/03/25 15:42
09/03/25 15:42
Vital Signs
Initial and Last Documented VS:
Initial Vital Signs
Pulse Resp
70 9
09/03/25 15:27 09/03/25 15:27
Last Documented Vital Signs
Temp Pulse Resp BP Pulse Ox
98.2 F 61 18 161/89 100
09/03/25 15:32 09/03/25 23:00 09/03/25 15:32 09/03/25 23:00 09/03/25 23:00
<Reggie Rodgers MD - Last Filed: 09/03/25 20:31>
Orders/Labs/Results
Orders:
Orders
09/03/25 15:29
Electrocardiogram (*1) Urgent
Reason for Study: Fatigue / Weakness
EKG- Treatment ONCE
09/03/25 15:42
CMP [Comprehensive Metabolic Panel] Urgent
Complete Blood Count/With Diff Urgent
12/24/25 16:08
Straight Cath As Directed
Frequency: One time now
09/03/25 16:10
Urinalysis Reflex To Culture Urgent
Date Specimen was Collected: 09/03/25
Time Specimen was Collected: 16:09
Urine Microscopic Reflex Cult Urgent
09/03/25 18:18
0.9% Sodium Chloride 1000 ml [Nss] 1,000 ml IV BOLUS
CR Chest - 2 Views Urgent
Comment:
Reason For Exam: cough
09/03/25 18:19
CT Head W/o Iv Contrast Urgent
Comment:
Reason For Exam: altered mental status.
09/03/25 18:23
COVID-19 Antigen Urgent
Source: Nasal Swab
Influenza A+B Rapid Molecular Urgent
KARIS Source: Nasal Swab
Specimen Description:
09/03/25 20:23
Bladder Scan- Treatment ONCE
09/03/25 21:42
Kidney & Bladder US [US Renal With Bladder] Routine
Comment:
Reason For Exam: renal insufficiency
09/03/25 21:49
Admit/Transfer Patient As Directed
Co-Sign Provider:
Level of Care: Inpatient admission
Assign to:: Medical/Surgical
Physician / Group: Sylvain
Diagnosis: Lethargy
Reason for Hospitalization: Lethargy
Expected length of stay greater than two midnights?: Yes
ELOS- Estimated Length of Stay in days: 2
I certify the patient meets the requirements for IP care: Yes
09/03/25 21:50
PRN Pain Medication Management As Directed
May give lesser potent ordered pain med per pt: Yes
preference::
Protocol:: Medication orders for pain may be administered in a
manner that supports deferring to patient preference
when the pt is:
- Requesting an ordered lesser potent pain medication.
Least to most potent pain medications are defined
as: acetaminophen < NSAID < tramadol < opioids
(morphine, oxycodone, hydromorphone).
- Requesting a lesser dose of the same medication IF
ORDERED.
- Requesting a less intrusive route of administration
if both routes are prescribed by the provider (PO <
IV).
09/03/25 21:55
Code Status As Directed
Resuscitation Status: Full Code
09/03/25 22:25
Keppra (Levetiracetam) [S] Stat
Abnormal Lab Results
09/03/25 09/03/25
15:42 16:10
RBC 3.96 L 10^6/uL
(4.70-6.10)
Hgb 10.1 L g/dL
(13.0-18.0)
Hct 30.9 L %
(39.0-52.0)
MCV 78.0 L fL
(80.0-94.0)
MCH 25.5 L pg
(27.0-31.0)
MCHC 32.7 L g/dL
(33.0-37.0)
Lymphocytes % 19.4 L %
(20.5-51.1)
BUN 33 H mg/dl
(9-20)
Creatinine 2.4 H mg/dL
(0.7-1.3)
Total Protein 6.1 L g/dl
(6.3-8.2)
Albumin 3.4 L g/dl
(3.5-5.0)
Ur Occult Blood Reflex 1+ A
(Negative)
Urine RBC 3-6 A /HPF
(0-2)
Urine Bacteria (Reflex) Few A
(Negative)
Urine Glucose 4+ A
(Negative)
Urine Albumin (Reflex) 4+ A
(Neg - Trace)
09/03/25 15:42
09/03/25 15:42
Vital Signs
Initial and Last Documented VS:
Initial Vital Signs
Pulse Resp
70 9
09/03/25 15:27 09/03/25 15:27
Last Documented Vital Signs
Temp Pulse Resp BP Pulse Ox
98.2 F 61 18 161/89 100
09/03/25 15:32 09/03/25 23:00 09/03/25 15:32 09/03/25 23:00 09/03/25 23:00
<Pamela Escobar NP - Last Filed: 09/03/25 23:17>
*Pulse Oximetry
SaO2: 99
Oxygen Mode of Delivery: Room air
Patient hypoxic: no
*Critical Care Note
Total Time (30-74mins, 75-104mins- exclusive of procedures): Not Applicable
<Pamela Escobar NP - Last Filed: 09/03/25 23:17>
Update Note
Update Note:
Patient to the emergency department for evaluation of lethargy. Report from nursing facility patient is weaker less responsive than his normal. Symptoms were noted today. On arrival to ED he will open his eyes to his name, answer questions with a
yes or no. Vital signs are stable and he remains afebrile. Labs reviewed WBC of 7.3. Hemoglobin 10.1 hematocrit 30.9 which is stable for him. Creat 2.4 BUN 33 -alteration from his normal. Mucous membranes are very dry, poor skin turgor. He was
given a liter of normal saline and his mentation has improved. UA negative for UTI. Chest x-ray NAD, CT of head without acute findings. Patient will be admitted to the hospitalist for ESTEFANI, dehydration. Case discussed with Dr. Rodgers who also
evaluated this patient. She is agreeable to findings and plan.
ED Attending Note
<Pamela Escobar NP - Last Filed: 09/03/25 23:17>
-
Portions of this chart may have been created with voice recognition software.� Occasional wrong word or��sound alike� substitutions may have occurred due to the inherent limitations of voice recognition software.
<Reggie Rodgers MD - Last Filed: 09/03/25 20:31>
ED Attending Note
Patient seen and examined by attending physician: Yes
I performed the substantive portion of visit, reviewed & personally made and approve the management plan that is documented in note by myself or SANDRA.: Yes
ED Attending Note:
I have seen and evaluated the patient with a [id number] encounter. I have spoken to the [SANDRA] and involved in the medical history, the physical exam, medical decision making.
Evaluation and management service: agree unless noted differently below.
Results interpretation: agree unless noted differently below.
Patient is a 50-year-old male with history of TBI presenting to the emergency department dehydration. Patient states that he feels hydrated. Still having minimal p.o. intake. Denies any abdominal pain diarrhea. He denies any nausea. Patient
does that he feels a lot better after receiving IV fluids on my examination patient is resting comfortably. He does have dry oral mucosa. His abdomen is soft nondistended nontender. Blood work does show elevated creatinine of 2.4 with a baseline
of 1.6. Will check a bladder scan admit patient for further IV hydration given the ESTEFANI.
Discharge Plan
Departure
Patient Disposition: Admit
Date of Disposition: 09/03/25
Time of Disposition: 21:01
Presentation/result/management discussed w/ accepting MD/DO: Hospitalist
Patient with high blood pressure during this ER visit?: No
Condition: Fair
Covid-19: Not Applicable
Discharge Problem:
ESTEFANI (acute kidney injury), Dehydration
Interventions
Interventions:
*General Assessment Last Done: 09/03/25 15:32
*Neglect/Abuse Screening Last Done: 09/03/25 15:32
*ED COVID-19 Vaccine History Last Done: 09/03/25 15:32
*ED Influenza Vaccine History Last Done: 09/03/25 15:32
[facility] Fall Risk Assessment Tool Last Done: 09/03/25 15:39
*Risk Screen - Suicide (C-SSRS) Last Done: 09/03/25 15:32
ED- Neurological Assessment Last Done: 09/03/25 15:32
--- NOTE | 2025-09-03 21:23 | HPS.HSE ---
Family Physician
-
Family Physician: Sanket Miramontes MD
Chief Complaint
-
Patient sent from [facility] for somnolence and lethargy
History of Present Illness
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
conversion disorder, aphasia, legal blindness, insulin-dependent diabetes, hypertension who has chronic ambulatory dysfunction and is currently residing at [facility] presents to the emergency department from the [facility] for report of
lethargy and altered mental status.
According to records patient is usually talkative, however today he has only been giving yes and no answers. On my interview with the patient he is history is very brief. He knows that he is in the hospital, he knows is from the [facility]. He
is able to tell me the year. However he was not very forthcoming with any symptoms. He did endorse that he was sent in because he has been sleeping. No witnessed seizures. No loss of bladder or bowel continence. He denies having any cough
fevers chills or shortness of breath. He denies any abdominal pain. He denies any nausea vomiting or diarrhea. He denies any new urinary symptoms. Patient reports that he ambulates with a wheelchair currently and denies any new numbness tingling
or weakness. He denies any difficulty with speaking but states that he feels tired. He states that he was sent in for falling. He states that he has been falling for over a year when asked why today rather than a few days ago over a week ago he
states he does not know. He is not aware of any new changes to his medications.
He was last admitted to the hospital following a fall where was found to have a small intracranial hemorrhage that was monitored and was stable.
In the emergency department he was afebrile with a Tmax of 98.2, blood pressure was 160/85 with a pulse rate of 67 and satting 99% on room air. ECG shows a normal sinus rhythm at a rate of 68 with a first-degree AV block which is similar to prior.
His chest x-ray shows no acute infiltrates. CT of the head without any acute intracranial process. He had negative COVID and flu test.
UA was negative. CBC was unremarkable with a stable hemoglobin of 10.1. His electrolytes were all normal. BUN and creatinine were 33 and 2.4 with a glucose of 95.
Medical History
Past Medical History
Past Medical History: Reports HTN and IDDM
Additional Past Medical History:
Orthostatic hypotension
Ambulatory dysfunction
Seizure disorder without status epilepticus
Traumatic brain injury
Left-sided hemiplegia
Anemia
Dissociated and conversion disorder
Bilateral blindness with bilateral hypertensive retinopathy, diabetic retinopathy with macular edema
Gastroparesis
GERD
Past Surgical History: Reports Other
Social History
Tobacco: Non-smoker
Alcohol: None
Drug: None
Personal: Single
Living: Group Home
Employment: Disabled
Family History
Family History: Not pertinent
Allergies / Home Medications
Allergies reflects when Allergies were last updated in [email or web address].
Home Medications with original date entered in [email or web address]
Allergy/Medication List:
Allergies
Allergy/AdvReac Type Severity Reaction Status Date / Time
Sulfa (Sulfonamide Allergy Unknown Verified 05/19/24 11:21
Antibiotics)
Home Medications
acetaminophen 325 mg tablet (Tylenol) 650 mg PO Q8HPRN PRN mild pain 05/19/24
aspirin 81 mg chewable tablet 81 mg PO DAILY Blood Clot Prevention/Tx 05/19/24
bisacodyl 10 mg rectal suppository (Dulcolax (bisacodyl)) 10 mg CA [id number] PRN if no bm on 3rd day 05/19/24
calcium 600 mg (as carbonate)-vitamin D3 10 mcg (400 unit) tablet (Calcium 600 + D(3)) 1 tab PO BID Supplement 05/19/24
cetylpyridinium chloride 1 karly mucous membrane Q4HPRN PRN cough 05/19/24
clonidine 0.2 mg/24 hr weekly transdermal patch 1 patch transdermal SA Blood Pressure 05/19/24
clonidine HCl 0.1 mg tablet 0.1 mg PO Q8HPRN PRN sbp>170 05/19/24
duloxetine 60 mg capsule,delayed release (Cymbalta) 120 mg PO DAILY 05/19/24
empagliflozin 10 mg tablet (Jardiance) 10 mg PO DAILY 05/19/24
ferrous gluconate 270 mg (27 mg iron) tablet 270 mg PO DAILY 05/19/24
gabapentin 600 mg tablet 1,200 mg PO TID 05/19/24
insulin aspart U-100 100 unit/mL subcutaneous cartridge (Novolog PenFill U-100 Insulin aspart) 8 unit SC BID@0800,1700 05/19/24
insulin aspart U-100 100 unit/mL subcutaneous solution (Novolog U-100 Insulin aspart) 6 unit SC DAILY@1200 05/19/24
insulin glargine 100 unit/mL (3 mL) subcutaneous pen (Lantus Solostar U-100 Insulin) 16 unit SC HS 05/19/24
lacosamide 200 mg tablet (Vimpat) 200 mg PO BID 05/19/24
levetiracetam 500 mg tablet (Keppra) 1,500 mg PO BID 05/19/24
loperamide 2 mg tablet 4 mg PO Q6HPRN PRN diarrhea 05/19/24
metformin 500 mg tablet 500 mg PO BID Diabetes 05/19/24
omeprazole 40 mg capsule,delayed release 40 mg PO DAILY Gastrointestinal Issue 05/19/24
ondansetron HCl 4 mg tablet 4 mg PO Q6HPRN PRN nasuea 05/19/24
polyethylene glycol 3350 17 gram oral powder packet (Miralax) 17 g PO DAILYPRN PRN constipation 05/19/24
potassium chloride 20 mEq tablet,extended release 20 meq PO BID Supplement 05/19/24
rosuvastatin 20 mg tablet 20 mg PO DAILY High Cholesterol 05/19/24
spironolactone 25 mg tablet 25 mg PO DAILY Fluid Retention/Swelling 05/19/24
sucralfate 1 gram tablet (Carafate) 1 g PO BID Gastrointestinal Issue 05/19/24
carvedilol 12.5 mg tablet 12.5 mg PO BID #60 tabs 05/23/24
nifedipine 30 mg tablet,extended release 30 mg PO DAILY #30 tabs 05/23/24
droxidopa 100 mg capsule 100 mg PO TID 08/20/24
Review of Systems
-
History Source: Patient
Constitutional: Reports Sleep Disturbance (Increased somnolence)
EENT: Reports No Symptoms
Respiratory: Reports No Symptoms
Cardiac: Reports No Symptoms
Abdomen/GI: Reports No Symptoms
: Reports No Symptoms
Musculoskeletal: Reports No Symptoms
Skin: Reports No Symptoms
Neurological: Reports No Symptoms
Endocrine: Reports No Symptoms
Hematologic/Lymphatic: Reports No Symptoms
Psych: Reports No Symptoms
Physical Exam
Vital Signs
Vital Signs
Temp Pulse Resp BP Pulse Ox
98.2 F 67 18 159/85 99
09/03/25 15:32 09/03/25 19:00 09/03/25 15:32 09/03/25 19:00 09/03/25 20:26
Physical Exam
General: Well Developed, Well Nourished, No Apparent Distress, Comfortable and Conversant
HEENT: NormoCephalic, Anicteric, Moist mucous membranes and Atraumatic
Respiratory: Clear
Cardiac: S1/S2 and Regular Rhythm
Breast: Deferred by me
GI: Soft, Non Tender and Normal Bowel Sounds
Rectal: Deferred by Provider
Genito-urinary: Deferred by me
Musculoskeletal: No Clubbing, No Cyanosis, Edema, Left Lower Extremity and Edema, Right Lower Extremity
Skin: Warm
Neuro: AO x 3, Cranial Nerves Intact and No Sensory Deficits
Hematologic/Lymphatic: No Lymphadenopathy
Psych: Calm
Laboratory Results
-
09/03/25 15:42
09/03/25 15:42
Laboratory Results
Total Bilirubin 0.3 mg/dl (0.2-1.3) 09/03/25 15:42
AST 20 U/L (17-59) 09/03/25 15:42
ALT 21 U/L (0-50) 09/03/25 15:42
Alkaline Phosphatase 107 U/L (38-126) 09/03/25 15:42
Data Reviewed
-
Diagnostic Radiology: Image Personally Visualized and interpreted and Report Reviewed by me
CT Scan: Report Reviewed by me
Medical Tests (Nuc Med, Echo, EKG etc): Image Personally Visualized and interpreted
Lab Data: Labs Reviewed by me
Old Records: Reviewed
Impression/Plan
-
IMPRESSION:
50-year-old who resides as [facility] with past medical history that is extensive including insulin-dependent diabetes, traumatic brain injury, orthostatic hypotension, chronic weakness requiring wheelchair, hemiplegia affecting the left
nondominant side, gastroparesis, generalized muscle weakness, PTSD, dissociative and conversion disorder, legal blindness stemming from diabetic proliferative retinopathy and macular edema presented to the emergency department with concern for
increased lethargy and somnolence. Patient is also aware of this finding. No witnessed seizures, no loss of bladder/bowel continence, no evidence of tongue biting. Workup in the emergency department is negative for an acute infection. COVID and
influenza test are negative. CBC is unremarkable. Electrolytes are stable. Pain and creatinine were similar to prior although creatinine slightly increased to 2.4 from a 1.61-year ago and there is no hyperglycemia or ketoacidosis. UA was
unremarkable. CT of the head shows no acute interval changes. Chest x-ray was clear. ECG was unremarkable. Patient reports that he has not had anything to eat or throughout the day today because he has been sleepy and his creatinine is elevated
2.4 suggestive of some dehydration.
PLAN:
Renal dysfunction -unclear how acute this creatinine of 2.4 is. Will have to get records. Cannot rule out obstruction. No evidence of an acute infection. B/S in ED 700 but not post void.
� Admit to MedSurg for now
� Continue with gentle hydration with IV normal saline for now
� Obtain renal bladder ultrasound for actual hdyro
- bladder scan and straight cath protocol for PVR > 400
- continue tamsulosin
� Obtain outpatient chemistry records
� Renal dose medications.
Somnolence -patient is easily arousable, becomes alert and oriented place times two 2 x 3 but then is not as talkative compared to baseline. He does have a history of seizures without status epilepticus. He is on antiepileptic drugs.
� No active epilepsy on examination
� Obtain drug levels
� Neurological exam every 4 hours
� Avoid sedatives for now
� Neurology consultation
- continue vimpat and keppra for now
Insulin-dependent diabetes
� Continue patient's long-acting insulin with Lantus 10 units at bedtime
� Continue insulin aspart 5 units 3 times daily AC and sliding scale insulin
�Hold metformin for now
� Continue Jardiance
Hypertension�hemodynamically stable and controlled
� Continue his home antihypertensives including clonidine patch, droxidopa and nifedipine
� Continue statin
GERD
� Continue PPI and carafate
DVT PPX -heparin subcu
Code status - full code
[2025-09-04] VITALS: BP 162/85
[2025-09-04 01:00] VITALS: BP 151/81
[2025-09-04 01:40] VITALS: BMI 25.6
[2025-09-04 01:41] LABS: Glucose - Point of Care 123 mg/dl (70-99)
[2025-09-04 01:42] VITALS: BP 156/83
[2025-09-04] MEDS: CARAFATE 1 GRAM PO ×5 (02:20→22:35)
[2025-09-04] MEDS: ALPHAGAN 0.2% EYE DROPS 1 DROP OPHTH ×4 (02:21→22:34)
[2025-09-04] MEDS: HEPARIN 5000 UNITS SC ×3 (02:22→15:39)
--- NOTE | 2025-09-04 03:10 | PTCARENOTE ---
Patient arrived to unit at 0115 from ED on stretcher-Pat[facility] w/ severe ambulatory dysfunction and LE weakness; patient pulled over to bed. Patient is bed/wheelchair bound at baseline. 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
markers and is aware of how to ring for assistance at this time. VSS. Patient denies pain at this time. See nursing shift Assx. Bed in lowest position and locked, call aranda within reach, patient has no further concerns at this time.
[2025-09-04 07:19] LABS: Hematocrit 31.2 % (39.0-52.0); Hemoglobin 10.1 g/dL (13.0-18.0); Mean Corp Hgb Conc. 32.4 g/dL (33.0-37.0); Mean Corpuscular Volume 79.0 fL (80.0-94.0); Platelet Count 253 10^3/uL (130-400); Red Cell Dist. Width 14.0 % (11.5-14.5)
[2025-09-04 07:20] LABS: Glucose - Point of Care 121 mg/dl (70-99)
[2025-09-04 07:21] VITALS: BP 165/95
[2025-09-04 07:44] LABS: Blood Urea Nitrogen 29 mg/dl (9-20); Calcium 9.6 mg/dl (8.4-10.2); Carbon Dioxide 24 mmol/L (22-30); Chloride 106 mmol/L (98-107); Estimated Creatinine Clearance 50 ml/min; Glucose 109 mg/dl (70-99); Magnesium 1.7 mg/dl (1.6-2.3); Potassium 4.3 mmol/L (3.5-5.1); Sodium 137 mmol/L (135-145); eGFR 41.92
--- NOTE | 2025-09-04 08:00 | W.PN.HOSP.TC ---
Today's Communication/Plan
-
see PN
Assessment / Plan
Assessment / Plan
50yo M, legally blind, Hx of TBI, recurrent syncope, recurrent encephalopathy, chronic paraplegia, epilepsy, DM, HTN, Hx of ICH, BRENNEN, CKD, Mood d/o, HLD, BPH brought from SNF with concerns for significant acute on chronic upper extremities tremors
and some lethargy. In ED found easily arousable. Patient remembers this episode and feeling on baseline on the second day after admission. Labs showed concern for ESTEFANI. Patient was not able to spontaneously void in ED, however found incontinence later
A/P:
#Acute on chronic tremors
#Hx of epilepsy
#Acute metabolic encephalopathy on admisison - resolved
Cannot r/o postictal state
UA without overt infection, no leukocytosis or left shift, no fever - unlikely infectious source
Seizure precautions
cont AED
Check Keppra and VImpat level
NEurology consult
Head CT without acute findings
#ESTEFANI on CKD stage 3a
#BPH
hold Jardiance and Metformin
IVF
follow Cr
US showed presence of b/l jets
Concern for overflow incontinence - bladder scan
[place] if retention
#DM, most likely type 1
Accuchecks, Insulin SS and DM diet
Since ESTEFANI - decrease basal/bolus by 50%
#Essential HTN
#Chronic constipation
#Anxiety
#Mood d/o
#LEgally blind
#Hx of ICH
#Hx of TBI with residual paraplegia
#BRENNEN
#Anemia 2/2 CKD on Epo
#HLD
#GERD
#HX of GIB
cont home meds when appropriate
DVT ppx hep
Full code
I have spent at least 59min reviewing hcart, test results, communication with conssultants and providing direct patient care
Anticipated Discharge: Within 24 hours
Subjective/Interval History
-
Date of Service: September 04, 2025
Objective Data
-
Labs:
Laboratory Results
09/04/25
06:26
WBC 7.6
Hgb 10.1 L
Hct 31.2 L
Plt Count 253
Sodium 137
Potassium 4.3
Chloride 106
Carbon Dioxide 24
BUN 29 H
Creatinine 1.9 H
Glucose 109 H
Calcium 9.6
Vital Signs:
Vital Signs
Temp Pulse Resp BP Pulse Ox
97.6 F 71 16 165/95 96
09/04/25 07:21 09/04/25 07:21 09/04/25 07:21 09/04/25 07:21 09/04/25 07:21
I&O
09/03/25 09/04/25 09/05/25
06:59 06:59 06:59
Intake Total 240 / 240
Balance 240 / 240
Review of Systems
-
History Source: Patient
All other systems: Reviewed and negative
Physical Exam
-
General: No Apparent Distress
HEENT: Normocephalic
Respiratory: Clear to Auscultation
Cardiac: Regular Rhythm
GI: Soft, Nontender and Nondistended
Neuro: Awake, Alert, Oriented and AO x 3
Psych: Calm
[2025-09-04] MEDS: KEPPRA 1500 MG PO ×2 (08:21→20:05)
[2025-09-04] MEDS: COREG 12.5 MG PO ×2 (08:21→20:06)
[2025-09-04] MEDS: NEURONTIN 300 MG PO ×3 (08:21→22:35)
[2025-09-04] MEDS: ABILIFY 5 MG PO (08:21)
[2025-09-04] MEDS: FEOSOL 325 MG PO (08:21)
[2025-09-04] MEDS: CYMBALTA DELAYED RELEASE 60 MG PO (08:21)
[2025-09-04] MEDS: CRESTOR 20 MG PO (08:21)
[2025-09-04] MEDS: ALDACTONE 25 MG PO (08:21)
[2025-09-04] MEDS: DROXIDOPA 100 MG PO ×3 (08:21→22:35)
[2025-09-04] MEDS: PROTONIX 20 MG PO (08:21)
[2025-09-04] MEDS: LOW STRENGTH ASPIRIN 81 MG PO (08:22)
[2025-09-04] MEDS: FLOMAX 0.8 MG PO (08:22)
[2025-09-04] MEDS: TIMOPTIC 0.5% OPHTHALMIC SOLUTION 1 DROP BOTH EYES ×2 (08:23→20:06)
[2025-09-04] MEDS: LR 1000 IV ×2 (08:23→18:05)
[2025-09-04] MEDS: TRUSOPT 2% OPHTHALMIC SOLUTION 1 DROP BOTH EYES ×2 (08:24→20:06)
[2025-09-04] MEDS: PROCARDIA XL (EXTENDED RELEASE) 90 MG PO (08:25)
[2025-09-04] MEDS: VIMPAT 200 MG PO ×2 (08:30→20:05)
[2025-09-04 08:33] LABS: Vitamin B12 955 pg/ml (239-931)
--- NOTE | 2025-09-04 08:48 | CON.NEURO4 ---
Consultation - Neurology 4
-
CONSULTING PHYSICIAN: Dr. Robson Javed
REFERRING PHYSICIAN: Dr. Isak Rodriguez
DICTATED BY: Dr. Robson Javed
DATE/TIME OF REQUEST: 09/04/2025
DATE/TIME OF CONSULTATION: 09/04/2025
Reason for Consultation: Tremors, altered mental status
ASSESSMENT AND PLAN:
50yo M, legally blind, Hx of TBI, recurrent syncope, recurrent encephalopathy, chronic paraplegia, epilepsy, DM, HTN, Hx of ICH, BRENNEN, CKD, Mood d/o, HLD, BPH brought from SNF with concerns for significant acute on chronic upper extremities tremors
and some lethargy. In ED found easily arousable. Patient remembers this episode and feeling on baseline on the second day after admission.
. CT head does not show acute intracranial abnormality.
There is no significant tremor of hands seen, and the patient was able to eat his sandwich without much difficulty.
The mental status also appears to be back to his baseline.
Continue Keppra and Vimpat.
Seizure precautions.
Follow up with Neurology.
Discussed with Dr. Isak Rodriguez.
History of Present Illness:
50yo M, legally blind, Hx of TBI, recurrent syncope, recurrent encephalopathy, chronic paraplegia, epilepsy, DM, HTN, Hx of ICH, BRENNEN, CKD, Mood d/o, HLD, BPH brought from SNF with concerns for significant acute on chronic upper extremities tremors
and some lethargy. In ED found easily arousable. Patient remembers this episode and feeling on baseline on the second day after admission.
Past Medical History: TBI, recurrent syncope, recurrent encephalopathy, chronic paraplegia, epilepsy, DM, HTN, Hx of ICH, BRENNEN, CKD, Mood d/o, HLD, BPH
Review of Systems:
10 point review systems were negative aside from as given above history of present illness.
Neurologic Examination:
Alert and oriented x 3, he knows his age and the month.
Speech is clear
Patient is legally blind
Patient has antigravity strength in bilateral upper and lower extremities
Vital Signs and Labs
-
Vital Signs and Labs:
Vital Signs
Temp Pulse Resp BP Pulse Ox
36.4 C 71 16 165/95 96
09/04/25 07:21 09/04/25 08:25 09/04/25 07:21 09/04/25 08:25 09/04/25 07:21
Lab Results
09/04/25 06:26
09/04/25 06:26
Sodium 137 mmol/L (135-145) 09/04/25 06:26
Potassium 4.3 mmol/L (3.5-5.1) 09/04/25 06:26
BUN 29 mg/dl (9-20) H 09/04/25 06:26
Glucose 109 mg/dl (70-99) H 09/04/25 06:26
Calcium 9.6 mg/dl (8.4-10.2) 09/04/25 06:26
Vitamin B12 955 pg/ml (239-931) H 09/04/25 06:26
Medications
-
Active Medications
Generic Name Dose Route Start Last Admin
Trade Name Freq PRN Reason Stop Dose Admin
Acetaminophen 650 mg 09/04/25 01:20
Acetaminophen 325 Mg Tablet PO 10/02/25 01:19
Q6HPRN PRN
mild pain
Aripiprazole 5 mg 09/04/25 08:00 09/04/25 08:21
Aripiprazole 5 Mg Tablet PO 10/02/25 07:59 5 mg
DAILY MILLER Administration
Aspirin 81 mg 09/04/25 08:00 09/04/25 08:22
Aspirin 81 Mg Chewable Tablet PO 10/02/25 07:59 81 mg
DAILY MILLER Administration
Bisacodyl 10 mg 09/04/25 01:20
Bisacodyl 10 Mg Rectal Suppository RECTAL 10/02/25 01:19
[id number] PRN
constipation
Brimonidine Tartrate 1 drop 09/04/25 01:20 09/04/25 08:23
Brimonidine 0.2% (Ophthalmic Solution) Bottle OPHTH 10/02/25 01:19 1 drop
TID MILLER Administration
Carvedilol 12.5 mg 09/04/25 08:00 09/04/25 08:21
Carvedilol 12.5 Mg Tablet PO 10/02/25 07:59 12.5 mg
BID MILLER Administration
Clonidine HCl 0.2 mg 09/05/25 08:00
Clonidine 0.2 Mg Patch TRANSDERM 10/03/25 07:59
FR MILLER
Dextrose 12.5 grams 09/04/25 07:45
Dextrose 50% (0.5 Grams/Ml) 50 Ml Syringe IV 10/02/25 07:44
[id number] PRN
hypoglycemia
Protocol
Dorzolamide HCl 1 drop 09/04/25 08:00 09/04/25 08:24
Dorzolamide 2% (Ophthalmic Solution) 10 Ml Bottle BOTH EYES 10/02/25 07:59 1 drop
BID MILLER Administration
Droxidopa 100 mg 09/04/25 08:00 09/04/25 08:21
Droxidopa 100 Mg Capsule (Non-Form) PO 10/02/25 07:59 100 mg
TID MILLER Administration
Duloxetine HCl 60 mg 09/04/25 08:00 09/04/25 08:21
Duloxetine Delayed Release 60 Mg Capsule PO 10/02/25 07:59 60 mg
DAILY MILLER Administration
Ferrous Sulfate 325 mg 09/04/25 08:00 09/04/25 08:21
Ferrous Sulfate 325 Mg Tablet PO 10/02/25 07:59 325 mg
DAILY MILLER Administration
Gabapentin 300 mg 09/04/25 08:00 09/04/25 08:21
Gabapentin 300 Mg Capsule PO 10/02/25 07:59 300 mg
TID MILLER Administration
Glucagon 1 mg 09/04/25 07:45
Glucagon 1 Mg Vial IM 10/02/25 07:44
PRN PRN
hypoglycemia
Protocol
Heparin Sodium 5,000 units 09/04/25 01:20 09/04/25 08:22
Heparin 5,000 Units/Ml 1 Ml Vial SC 10/02/25 01:19 5,000 units
Q8 MILLER Administration
Insulin Glargine 20 units/ 0.2 mls @ 0 mls/hr 09/04/25 22:00
Device SC 10/02/25 21:59
HS MILLER
As Directed
Lactated Ringer's 1,000 mls @ 100 mls/hr 09/04/25 08:00 09/04/25 08:23
Lr IV 1,000 mls
.Q10H MILLER Administration
Insulin Aspart 3 units 09/04/25 12:00
Insulin Aspart (Novolog) 100 Units/Ml 3 Ml Flexpen SC 10/02/25 11:59
DAILY@1200 MILLER
Insulin Aspart 6 units 09/04/25 17:00
Insulin Aspart (Novolog) 100 Units/Ml 3 Ml Flexpen SC 10/02/25 16:59
DAILY@1700 MILLER
Insulin Aspart 0 units 09/04/25 11:30
Insulin Aspart Low Resistance 300 Units/3 Ml Pen.Injctr SC 10/02/25 11:29
AC MILLER
Protocol
Lacosamide 200 mg 09/04/25 08:00 09/04/25 08:30
Lacosamide (Vimpat) 200 Mg Tablet PO 10/02/25 07:59 200 mg
BID MILLER Administration
Latanoprost 1 drop 09/04/25 18:00
Latanoprost 0.005% (Ophthalmic Solution) 2.5 Ml Bottle OPHTH 10/02/25 17:59
QPM MILLER
Levetiracetam 1,500 mg 09/04/25 08:00 09/04/25 08:21
Levetiracetam 500 Mg Regular Release Tablet PO 10/02/25 07:59 1,500 mg
BID MILLER Administration
Nifedipine 90 mg 09/04/25 08:00 09/04/25 08:25
Nifedipine 30 Mg Extended Release Tablet PO 10/02/25 07:59 90 mg
DAILY MILLER Administration
Ondansetron HCl 4 mg 09/04/25 01:20
Ondansetron 4 Mg/2 Ml Vial IV 10/02/25 01:19
Q6HPRN PRN
nausea and vomiting
Pantoprazole Sodium 20 mg 09/04/25 08:00 09/04/25 08:21
Pantoprazole 20 Mg Delayed Release Tablet PO 10/02/25 07:59 20 mg
DAILY MILLER Administration
Polyethylene Glycol 17 grams 09/04/25 01:20
Polyethylene Glycol Powder 17 Grams Packet PO 10/02/25 01:19
DAILYPRN PRN
constipation
Rosuvastatin Calcium 20 mg 09/04/25 08:00 09/04/25 08:21
Rosuvastatin (Crestor) 20 Mg Tablet PO 10/02/25 07:59 20 mg
DAILY MILLER Administration
Senna/Docusate Sodium 1 tablet 09/04/25 01:20
Docusate W/Senna (Paula-Colace) Tablet PO 10/02/25 01:19
BIDPRN PRN
constipation
Sodium Chloride 0 flush 09/04/25 02:00
Sodium Chloride 0.9% (Flush) Syringe IV 10/02/25 01:59
PER PROTOCOL MILLER
Spironolactone 25 mg 09/04/25 08:00 09/04/25 08:21
Spironolactone 25 Mg Tablet PO 10/02/25 07:59 25 mg
DAILY MILLER Administration
Sucralfate 1 gram 09/04/25 01:20 09/04/25 08:22
Sucralfate 1 Gram Tablet PO 10/02/25 01:19 1 gram
QID MILLER Administration
Tamsulosin HCl 0.8 mg 09/04/25 08:00 09/04/25 08:22
Tamsulosin 0.4 Mg Capsule PO 10/02/25 07:59 0.8 mg
DAILY MILLER Administration
Timolol Maleate 0 drop 09/04/25 08:00 09/04/25 08:23
Timolol 0.5% (Ophthalmic Solution) Bottle BOTH EYES 10/02/25 07:59 1 drop
BID MILLER Administration
Trazodone HCl 25 mg 09/04/25 22:00
Trazodone 50 Mg Tablet PO 10/02/25 21:59
HS MILLER
Home Medications
�Medication �Instructions �Recorded
acetaminophen 325 mg tablet 650 mg PO Q6HPRN PRN mild pain 05/19/24
(Tylenol)
bisacodyl 10 mg rectal suppository 10 mg NV [id number] PRN if no bm on 05/19/24
(Dulcolax (bisacodyl)) 3rd day
clonidine 0.2 mg/24 hr weekly 1 patch transdermal FR Blood 05/19/24
transdermal patch Pressure
clonidine HCl 0.1 mg tablet 0.1 mg PO Q8HPRN PRN sbp>170 05/19/24
empagliflozin 10 mg tablet 10 mg PO DAILY Diabetes 05/19/24
(Jardiance)
ferrous gluconate 270 mg (27 mg 270 mg PO DAILY Supplement 05/19/24
iron) tablet
insulin aspart U-100 100 unit/mL 12 unit SC DAILY@1700 Diabetes 05/19/24
subcutaneous cartridge (Novolog
PenFill U-100 Insulin aspart)
insulin aspart U-100 100 unit/mL 6 unit SC DAILY@1200 Diabetes 05/19/24
subcutaneous solution (Novolog
U-100 Insulin aspart)
insulin glargine 100 unit/mL (3 20 unit SC HS Diabetes 05/19/24
mL) subcutaneous pen (Lantus
Solostar U-100 Insulin)
lacosamide 200 mg tablet (Vimpat) 200 mg PO BID Seizures 05/19/24
levetiracetam 500 mg tablet 1,500 mg PO BID Seizures 05/19/24
(Keppra)
metformin 500 mg tablet 1,000 mg PO BID Diabetes 05/19/24
ondansetron HCl 4 mg tablet 4 mg PO Q8HPRN PRN nasuea 05/19/24
polyethylene glycol 3350 17 gram 17 g PO DAILYPRN PRN constipation 05/19/24
oral powder packet (Miralax)
rosuvastatin 20 mg tablet 20 mg PO DAILY High Cholesterol 05/19/24
spironolactone 25 mg tablet 25 mg PO DAILY Fluid 05/19/24
Retention/Swelling
sucralfate 1 gram tablet (Carafate) 1 g PO QID Gastrointestinal Issue 05/19/24
carvedilol 12.5 mg tablet 12.5 mg PO BID #60 tabs 05/23/24
droxidopa 100 mg capsule 100 mg PO TID Blood Pressure 08/20/24
gabapentin 300 mg capsule 300 mg PO TID #90 caps 08/22/24
aripiprazole 5 mg tablet (Abilify) 5 mg PO DAILY Mental Health/Anxiety 09/03/25
aspirin 81 mg chewable tablet 81 mg PO DAILY Blood Clot 09/03/25
Prevention/Tx
brimonidine 0.2 % eye drops 1 drp ophthalmic (eye) TID Eye 09/03/25
Condition
calcium carbonate 600 mg PO DAILY Gastrointestinal 09/03/25
Issue
cholecalciferol (vitamin D3) 50 50 mcg PO DAILY Supplement 09/03/25
mcg (2,000 unit) tablet
darbepoetin jarrett in polysorbat 40 40 mcg SC Q2W PRN Hgb <11 09/03/25
mcg/0.4 mL in polysorbate
injection syringe
dorzolamide-timolol (PF) 2 %-0.5 % 1 drp ophthalmic (eye) BID Eye 09/03/25
eye drops in a dropperette (Cosopt Condition
(PF))
duloxetine 60 mg capsule,delayed 60 mg PO DAILY Mental 09/03/25
release Health/Anxiety
latanoprost 0.005 % eye drops 1 drp ophthalmic (eye) QPM Eye 09/03/25
Condition
nifedipine 90 mg tablet,extended 90 mg PO DAILY Blood Pressure 09/03/25
release
omeprazole 10 mg capsule,delayed 10 mg PO DAILY Gastrointestinal 09/03/25
release Issue
tamsulosin 0.4 mg capsule 0.8 mg PO DAILY 09/03/25
trazodone 50 mg tablet 25 mg PO HS Mental Health/Anxiety 09/03/25
--- NOTE | 2025-09-04 10:11 | CM ---
patient seen at bedside
IA completed
Dx; lethargy
CM consult complete-suicide risk
per nursing will text hospitalist for psychiatry eval
PMH: legally blind, Hx of TBI, recurrent syncope, recurrent encephalopathy, chronic paraplegia, epilepsy, DM, HTN, Hx of ICH, BRENNEN, CKD, Mood d/o, HLD, BPH
Patient came in from [facility]-referral placed in careport
PLOF: wc/bedbound
PCP: Sanket Miramontes
Pharmacy: [facility]
PLAN: return to [facility] when stable
[2025-09-04 11:39] LABS: Urine Character Clear (Clear)
[2025-09-04 12:51] LABS: Glucose - Point of Care 164 mg/dl (70-99)
[2025-09-04] MEDS: NOVOLOG FLEXPEN 3 UNITS SC (12:58)
[2025-09-04] MEDS: NOVOLOG FLEXPEN-LOW RESISTANCE 1 UNITS SC (12:58)
[2025-09-04 13:17] LABS: Glycohemoglobin (HgbA1c) 8.6 % (4.0-5.9)
[2025-09-04 14:40] VITALS: BP 139/82
[2025-09-04 16:56] LABS: Glucose - Point of Care 252 mg/dl (70-99)
[2025-09-04] MEDS: NOVOLOG FLEXPEN 6 UNITS SC (16:56)
[2025-09-04] MEDS: NOVOLOG FLEXPEN-LOW RESISTANCE 3 UNITS SC (16:57)
[2025-09-04] MEDS: XALATAN OPHTHALMIC SOLUTION 1 DROP OPHTH (17:04)
--- NOTE | 2025-09-04 19:51 | PTCARENOTE ---
Bladder scan obtained this AM per MD order for 663ml, patient without urge to void but able to urinate into CC bag, repeat scan >400ml. MD made aware, order for andrade for acute retention placed per MD; 14fr Andrade inserted by this RN for clear yellow
urine output. Patient tolerated procedure. Patient AAOX3, states mentation improved from admission, able to hold conversation and participate in care. Patient with hand tremors which patient reports having at baseline, ordered neurochecks WNL - see
charting. IVF infusing, patient ringing appropriately.
[2025-09-04 22:02] LABS: Glucose - Point of Care 263 mg/dl (70-99)
[2025-09-04] MEDS: LANTUS 0.2 UNITS SC (22:34)
[2025-09-04] MEDS: DESYREL 25 MG PO (22:35)
[2025-09-04 22:39] VITALS: BP 157/82
[2025-09-05] MEDS: HEPARIN 5000 UNITS SC ×2 (00:45→08:05)
[2025-09-05] MEDS: LR 1000 IV (03:45)
[2025-09-05 07:32] VITALS: BP 158/83
[2025-09-05] MEDS: VIMPAT 200 MG PO (08:04)
[2025-09-05] MEDS: DROXIDOPA 100 MG PO (08:04)
[2025-09-05] MEDS: KEPPRA 1500 MG PO (08:04)
[2025-09-05] MEDS: CYMBALTA DELAYED RELEASE 60 MG PO (08:04)
[2025-09-05] MEDS: PROCARDIA XL (EXTENDED RELEASE) 90 MG PO (08:04)
[2025-09-05] MEDS: FLOMAX 0.8 MG PO (08:04)
[2025-09-05] MEDS: PROTONIX 20 MG PO (08:04)
[2025-09-05] MEDS: LOW STRENGTH ASPIRIN 81 MG PO (08:05)
[2025-09-05] MEDS: ALDACTONE 25 MG PO (08:05)
[2025-09-05] MEDS: ABILIFY 5 MG PO (08:05)
[2025-09-05] MEDS: FEOSOL 325 MG PO (08:05)
[2025-09-05] MEDS: CARAFATE 1 GRAM PO (08:05)
[2025-09-05] MEDS: COREG 12.5 MG PO (08:05)
[2025-09-05] MEDS: NEURONTIN 300 MG PO (08:05)
[2025-09-05] MEDS: CRESTOR 20 MG PO (08:05)
[2025-09-05] MEDS: ALPHAGAN 0.2% EYE DROPS 1 DROP OPHTH (08:06)
[2025-09-05] MEDS: NOVOLOG FLEXPEN-LOW RESISTANCE 2 UNITS SC (08:11)
[2025-09-05 08:12] LABS: Glucose - Point of Care 227 mg/dl (70-99)
[2025-09-05] MEDS: TIMOPTIC 0.5% OPHTHALMIC SOLUTION 1 DROP BOTH EYES (08:13)
[2025-09-05] MEDS: TRUSOPT 2% OPHTHALMIC SOLUTION 1 DROP BOTH EYES (08:13)
[2025-09-05] MEDS: CATAPRES-TTS-2 0.2 MG TRANSDERM (08:51)
[2025-09-05 09:23] LABS: Hematocrit 28.8 % (39.0-52.0); Hemoglobin 9.6 g/dL (13.0-18.0); Mean Corp Hgb Conc. 33.3 g/dL (33.0-37.0); Mean Corpuscular Volume 76.4 fL (80.0-94.0); Nucleated Red Blood Cells % 0 % (-); Platelet Count 237 10^3/uL (130-400); Red Cell Dist. Width 13.5 % (11.5-14.5)
[2025-09-05 09:29] LABS: ALT (SGPT) 19 U/L (0-50); AST (SGOT) 17 U/L (17-59); Albumin 2.9 g/dl (3.5-5.0); Alkaline Phosphatase 118 U/L (38-126); Blood Urea Nitrogen 28 mg/dl (9-20); Calcium 9.0 mg/dl (8.4-10.2); Carbon Dioxide 23 mmol/L (22-30); Chloride 102 mmol/L (98-107); Estimated Creatinine Clearance 59 ml/min; Glucose 215 mg/dl (70-99); Potassium 4.1 mmol/L (3.5-5.1); Sodium 132 mmol/L (135-145); Total Protein 5.3 g/dl (6.3-8.2); eGFR 51.52
--- NOTE | 2025-09-05 10:08 | W.PN.HOSP.TC ---
Today's Communication/Plan
-
dc
Assessment / Plan
Assessment / Plan
50yo M, legally blind, Hx of TBI, recurrent syncope, recurrent encephalopathy, chronic paraplegia, epilepsy, DM, HTN, Hx of ICH, BRENNEN, CKD, Mood d/o, HLD, BPH brought from SNF with concerns for significant acute on chronic upper extremities tremors
and some lethargy. In ED found easily arousable. Patient remembers this episode and feeling on baseline on the second day after admission. Labs showed concern for ESTEFANI. Patient was not able to spontaneously void in ED, however found incontinence
later, but PVR was >600ml -Leon inserted. UA with bacteria but most likely asymptomatic bacteriuria - cont to follow. Neurology did not recommend further studies. Medically stable to be d/c back to LTC
A/P:
#Acute on chronic tremors
#Hx of epilepsy
#Acute metabolic encephalopathy on admission - resolved
Cannot r/o postictal state
UA without overt infection, no leukocytosis or left shift, no fever - unlikely infectious source
Seizure precautions
cont AED
Check Keppra and VImpat level
NEurology consult: cont AED, no further studies indicated
Head CT without acute findings
#ESTEFANI on CKD stage 3a
#BPH
#Acute urinary retention
#Asymptomatic bacteiuria
hold Jardiance and Metformin
IVF
follow Cr
US showed presence of b/l jets
Concern for overflow incontinence - bladder scan
Leon inserted -patient to follow with established urologist. Has Hx of Leon before
UA with bacteria but no pyuria, no fever or leukocytosis - no indication to treat
#DM, most likely type 1
Accuchecks, Insulin SS and DM diet
Since ESTEFANI - decrease basal/bolus by 50%
#Essential HTN
#Chronic constipation
#Anxiety
#Mood d/o
#Legally blind
#Hx of ICH
#Hx of TBI with residual paraplegia
#BRENNEN
#Anemia 2/2 CKD on Epo
#HLD
#GERD
#HX of GIB
cont home meds when appropriate
DVT ppx hep
Full code
I have spent at least 36min reviewing hcart, test results, communication with conssultants and providing direct patient care
Anticipated Discharge: Today
Subjective/Interval History
-
Date of Service: September 05, 2025
Objective Data
-
Labs:
Laboratory Results
09/05/25
07:43
WBC 7.8
Hgb 9.6 L
Hct 28.8 L
Plt Count 237
Sodium 132 L
Potassium 4.1
Chloride 102
Carbon Dioxide 23
BUN 28 H
Creatinine 1.6 H
Glucose 215 H
Calcium 9.0
Total Bilirubin 0.2
AST 17
ALT 19
Alkaline Phosphatase 118
Vital Signs:
Vital Signs
Temp Pulse Resp BP Pulse Ox
97.7 F 71 16 158/83 96
09/05/25 07:32 09/05/25 08:04 09/05/25 07:32 09/05/25 08:51 09/05/25 07:32
I&O
09/04/25 09/05/25 09/06/25
06:59 06:59 06:59
Intake Total 240 / 240 1900 / 1900
Output Total 2400 / 2400
Balance 240 / 240 -500 / -500
Review of Systems
-
History Source: Patient
All other systems: Reviewed and negative
Physical Exam
-
General: No Apparent Distress
Respiratory: Clear to Auscultation
Cardiac: Regular Rhythm
GI: Soft, Nontender and Nondistended
Neuro: Other (paraplegia); Negative Tremors
--- NOTE | 2025-09-05 10:15 | W.DCSUMMARY ---
Addendum entered and electronically signed by Isak Rodriguez MD 09/05/25 12:15:
Elevated keppra level 2/2 ESTEFANI on admisison, but does not justify decrease in AED as concern for breakthrough seizure on admission
Addendum entered and electronically signed by Isak Rodriguez MD 09/05/25 11:45:
all discuarge diagnosis and plan discussed with patients father over the phone
Original Note:
Discharge Summary
Discharge Data
Date of Admission: 09/03/25
Date of Discharge: 09/05/25
-
Pending Results: Yes
Additional Pending Results:
Urine culture
Hospital Course
50yo M, legally blind, Hx of TBI, recurrent syncope, recurrent encephalopathy, chronic paraplegia, epilepsy, DM, HTN, Hx of ICH, BRENNEN, CKD, Mood d/o, HLD, BPH brought from SNF with concerns for significant acute on chronic upper extremities tremors
and some lethargy. In ED found easily arousable. Patient remembers this episode and feeling on baseline on the second day after admission. Labs showed concern for ESTEFANI. Patient was not able to spontaneously void in ED, however found incontinence
later, but PVR was >600ml -De Los Santos inserted. UA with bacteria but most likely asymptomatic bacteriuria - cont to follow. Neurology did not recommend further studies. Medically stable to be d/c back to LTC
I have spent at least 36min reviewing hcart, test results, communication with conssultants and providing direct patient care
Patient was managed for:
#Acute on chronic tremors
#Hx of epilepsy
#Acute metabolic encephalopathy on admission - resolved
#ESTEFANI on CKD stage 3a
#BPH
#Acute urinary retention
#Asymptomatic bacteriuria
#DM, most likely type 1
#Essential HTN
#Chronic constipation
#Anxiety
#Mood d/o
#Legally blind
#Hx of ICH
#Hx of TBI with residual paraplegia
#BRENNEN
#Anemia 2/2 CKD on Epo
#HLD
#GERD
#HX of GIB
Discharge Plan
-
Patient Disposition: Custodial/SNF
Discharge Diagnosis/Procedures: tremors
Diet: Diabetic, Carb Controlled
Activity: As tolerated
Driving Restrictions: As prior to admission
Referrals:
Sanket Miramontes MD [Family Provider, [facility]]
Referral Note: Refer to urologist for urinary retention
Prescriptions:
Continued
metformin 500 mg Tablet
1,000 mg PO BID
clonidine HCl 0.1 mg Tablet
0.1 mg PO Q8HPRN PRN (Reason: sbp>170)
acetaminophen [Tylenol] 325 mg Tablet
650 mg PO Q6HPRN PRN (Reason: mild pain)
polyethylene glycol 3350 [Miralax] 17 gram Powder In Packet
17 g PO DAILYPRN PRN (Reason: constipation)
clonidine 0.2 mg/24 hr Patch Weekly
1 patch TRANSDERMAL FR
levetiracetam [Keppra] 500 mg Tablet
1,500 mg PO BID
sucralfate [Carafate] 1 gram Tablet
1 g PO QID
ondansetron HCl 4 mg Tablet
4 mg PO Q8HPRN PRN (Reason: nasuea)
spironolactone 25 mg Tablet
25 mg PO DAILY
insulin aspart U-100 [Novolog U-100 Insulin aspart] 100 unit/mL Solution
6 unit SC DAILY@1200
bisacodyl [Dulcolax (bisacodyl)] 10 mg Suppository
10 mg [place] [id number] PRN (Reason: if no bm on 3rd day)
insulin aspart U-100 [Novolog PenFill U-100 Insulin] 100 unit/mL Cartridge
12 unit SC DAILY@1700
rosuvastatin 20 mg Tablet
20 mg PO DAILY
insulin glargine [Lantus Solostar U-100 Insulin] 100 unit/mL (3 mL) Insulin Pen
20 unit SC HS
lacosamide [Vimpat] 200 mg Tablet
200 mg PO BID
Jardiance 10 mg Tablet
10 mg PO DAILY
ferrous gluconate 270 mg (27 mg iron) Tablet
270 mg PO DAILY
carvedilol 12.5 mg Tablet
12.5 mg PO BID Qty: 60 0RF
droxidopa 100 mg Capsule
100 mg PO TID
Rx Instructions:
hold if bp >150, sit for 5 minutes prior to taking bp
gabapentin 300 mg capsule
300 mg PO TID Qty: 90 0RF
latanoprost 0.005 % Drops
1 drp OPHTHALMIC (EYE) QPM
Rx Instructions:
1 drop both eyes
trazodone 50 mg Tablet
25 mg PO HS
calcium carbonate 600 mg calcium (1,500 mg) Tablet
600 mg PO DAILY
aspirin 81 mg Tablet,Chewable
81 mg PO DAILY
aripiprazole [Abilify] 5 mg Tablet
5 mg PO DAILY
duloxetine 60 mg capsule,delayed release(DR/EC)
60 mg PO DAILY
darbepoetin jarrett in polysorbat 40 mcg/0.4 mL Syringe
40 mcg SC Q2W PRN (Reason: Hgb <11)
Rx Instructions:
Every 14 days if Hgb <11
cholecalciferol (vitamin D3) 50 mcg (2,000 unit) Tablet
50 mcg PO DAILY
dorzolamide-timolol (PF) [Cosopt (PF)] 2-0.5 % Dropperette
1 drp OPHTHALMIC (EYE) BID
Rx Instructions:
1 drop both eyes
tamsulosin 0.4 mg capsule
0.8 mg PO DAILY
nifedipine 90 mg Tablet Extended Release
90 mg PO DAILY
omeprazole 10 mg Capsule,Delayed Release(Dr/Ec)
10 mg PO DAILY
brimonidine 0.2 % Drops
1 drp OPHTHALMIC (EYE) TID
Discharge Orders:
Discharge Patient (As Directed); Ordered 09/05/25
Ordered By: Isak Rodriguez
Discharge Date and Time
Print Language: VIET[place]ESE
--- NOTE | 2025-09-05 10:43 | CM ---
Patient for return to [facility] SN[facility]; Please call report to [phone]/fax [phone]. CM spoke with patient father via phone, IMM completed and placed on chart. Patient for ambulance transfer; forms also placed on chart. Admissions aware of
patient return. CM will continue to follow for discharge planning needs.
Plan; return to SNF
[2025-09-05 12:04] VITALS: BP 143/80
[2025-09-05 12:04] LABS: Glucose - Point of Care 276 mg/dl (70-99)
== END 2025-09-05 12:20 | DRG 682 ==
LOC: 2 NORTH 22:24
PROVIDERS: Emergency Medicine; Nurse Practitioner; ADMITTING PHYSICIAN Internal Medicine; ATTENDING PHYSICIAN Internal Medicine; CONSULT PHYSICIAN Psychiatry & Neurology Neurology; EMERGENCY PHYSICIAN Student in an Organized Health Care Education/Training Program; FAMILY PHYSICIAN Family Medicine
DX: N17.9 Acute kidney failure, unspecified (principal); G93.41 Metabolic encephalopathy; G81.94 Hemiplegia, unspecified affecting left nondominant side; G82.20 Paraplegia, unspecified; R25.1 Tremor, unspecified; E86.0 Dehydration; G40.909 Epilepsy, unspecified, not intractable, without status epilepticus; N18.31 Chronic kidney disease, stage 3a; N40.1 Benign prostatic hyperplasia with lower urinary tract symptoms; F41.9 Anxiety disorder, unspecified; K59.09 Other constipation; F39 Unspecified mood [affective] disorder; H54.8 Legal blindness, as defined in USA; K21.9 Gastro-esophageal reflux disease without esophagitis; D63.1 Anemia in chronic kidney disease; E10.22 Type 1 diabetes mellitus with diabetic chronic kidney disease; E10.3519 Type 1 diabetes mellitus with proliferative diabetic retinopathy with macular edema, unspecified eye; E10.43 Type 1 diabetes mellitus with diabetic autonomic (poly)neuropathy; E78.00 Pure hypercholesterolemia, unspecified; F44.9 Dissociative and conversion disorder, unspecified; R33.8 Other retention of urine; R32 Unspecified urinary incontinence; K31.84 Gastroparesis; H35.033 Hypertensive retinopathy, bilateral; I12.9 Hypertensive chronic kidney disease with stage 1 through stage 4 chronic kidney disease, or unspecified chronic kidney disease; Z11.52 Encounter for screening for COVID-19; Z79.4 Long term (current) use of insulin; Z79.899 Other long term (current) drug therapy; Z87.820 Personal history of traumatic brain injury; Z99.3 Dependence on wheelchair
CPT/HCPCS: 70450; 71046; 76770; 80048; 80053; 80177; 81003; 81015; 82550; 82607; 82962; 83036; 83735; 85025; 85027; 87086; 87147; 87186; 87502; 87811; 93005; 99285